=== PATIENT | female | born 1935 | race Caucasian/White ===

== ENCOUNTER → 2019-05-17 13:13 | Outpatient (BNVA) | payer MEDICARE, OTHER, SELFPAY | PROVIDERS: Family Provider Family Medicine; PCP Family Medicine; Referring Provider Internal Medicine Rheumatology; Visit Provider Internal Medicine Rheumatology | DX: M05.79 Rheumatoid arthritis with rheumatoid factor of multiple sites without organ or systems involvement (principal); Z79.899 Other long term (current) drug therapy | CPT/HCPCS: 36415; 82565; 84460; 85025; 85651; 86140 ==

== ENCOUNTER → 2019-05-30 10:18 | Outpatient (BNVA) | payer MEDICARE, OTHER, SELFPAY | PROVIDERS: Family Provider Family Medicine; PCP Family Medicine; Referring Provider Family Medicine; Visit Provider Internal Medicine Rheumatology | DX: M05.79 Rheumatoid arthritis with rheumatoid factor of multiple sites without organ or systems involvement (principal); Z79.899 Other long term (current) drug therapy; Z79.01 Long term (current) use of anticoagulants; Z79.52 Long term (current) use of systemic steroids | CPT/HCPCS: 99213 ==

== ENCOUNTER 2019-07-15 15:32 | Outpatient (CLI) | payer MEDICARE, OTHER, SELFPAY ==
--- NOTE | 2019-07-15 | XRR_ITS ---
PROCEDURE INFORMATION: Exam: XR Chest, 2 Views Exam date and time: 07/15/2019 3:56 PM Age: 83 years old Clinical indication: Condition or disease; Other: Pneumonia, chf TECHNIQUE: Imaging protocol: XR of the chest Views: 2 views. COMPARISON: CR Chest 1 [place] [id number] 10/21/2018 10:38 PM FINDINGS: Lungs: There is unchanged interstitial prominence compatible with fibrosis, and/or recurrent bronchitis, viral pneumonitis or mild interstitial edema. No lobar consolidation. Pleural space: Trace pleural effusions versus pleural thickening is noted. No pneumothorax. Heart/Mediastinum: The heart is enlarged. Bones/joints: Osteopenia and moderate diffuse degenerative changes are noted. XR/XR chest 2V* [id number] IMPRESSION: There is unchanged interstitial prominence compatible with fibrosis, and/or recurrent bronchitis, viral pneumonitis or mild interstitial edema.
== END 2019-07-15 15:33 | disposition home or self-care (01) ==
LOC: RAD 15:37
PROVIDERS: Family Provider Family Medicine; PCP Family Medicine; Visit Provider Family Medicine
DX: J18.9 Pneumonia, unspecified organism (principal); I50.9 Heart failure, unspecified
CPT/HCPCS: 71046

== ENCOUNTER 2019-07-26 12:24 | Outpatient (CLI) | payer MEDICARE, OTHER, SELFPAY ==
--- NOTE | 2019-07-26 12:29 | USCV_ITS ---
Geneva Clark Age: 83 Gender: F : 1935 Exam Date: 07/26/2019 12:31 Ordering Phys: Chandrakant Ballard MD Technologist: Roselyn Aguilar [place] [facility] [place]: CHF BP: / HR: 80 Rhythm: Sinus Technical Quality: Adequate MEASUREMENTS (Male / Female) Normal Values 2D ECHO LV Diastolic Diameter PLAX 4.2 cm 4.2 - 5.9 / 3.9 - 5.3 cm LV Systolic Diameter PLAX 1.9 cm IVS Diastolic Thickness 1.3 cm 0.6 - 1.0 / 0.6 - 0.9 cm IVS Systolic Thickness 2.2 cm LVPW Diastolic Thickness 0.7 cm 0.6 - 1.0 / 0.6 - 0.9 cm LVPW Systolic Thickness 1.5 cm LVOT Diameter 2.0 cm LV Ejection Fraction 2D Teich 84.8 % LV Ejection Fraction MOD 2C 79.3 % LV Ejection Fraction 2C AL 78.5 % LA Diameter 5.1 cm LA Width 4.1 cm LA Height 6.0 cm RA Width 4.5 cm RA Height 5.2 cm M-MODE LV Diastolic Diameter MM 5.0 cm 4.2 - 5.9 / 3.9 - 5.3 cm LV Systolic Diameter MM 3.2 cm LV Ejection Fraction MM Teich 65.1 % IVS Diastolic Thickness MM 0.8 cm 0.6 - 1.0 / 0.6 - 0.9 cm IVS Systolic Thickness MM 1.5 cm LVPW Diastolic Thickness MM 0.9 cm 0.6 - 1.0 / 0.6 - 0.9 cm LVPW Systolic Thickness MM 1.7 cm Aortic Annulus Diameter 2.9 cm LA Ao Ratio MM 1.7 MV E Point Septal Separation 0.9 cm DOPPLER AV Peak Velocity 260.0 cm/s LVOT Peak Velocity 75.0 cm/s AV Area Cont Eq vti 1.1 cm squared AV Area Cont Eq pk 0.9 cm squared MV Peak Velocity 149.0 cm/s MV Area PHT 4.3 cm squared Mitral E to A Ratio 6.7 MV E' Velocity 10.0 cm/s Mitral E to MV E' Ratio 14.8 Mitral E to LV E' Lateral Ratio 16.2 Mitral E to LV E' Septal Ratio 13.8 TR Peak Velocity 301.0 cm/s TR Peak Gradient 32.7 mmHg Right Atrial Pressure 3.0 mmHg Pulmonary Artery Systolic Pressu 39.2 mmHg PV Peak Velocity 106.0 cm/s RV Acceleration Time 0.1 s FINDINGS Left Ventricle Normal left ventricular size and systolic function, EF 74 %. Moderate left ventricular hypertrophy. Grade I/IV diastolic dysfunction (abnormal relaxation filling pattern), normal to mildly elevated filling pressures. Right Ventricle The right ventricle is normal in size and function. Right Atrium Moderately increased right atrial size. Left Atrium Moderately increased left atrial size. Mitral Valve Thickened mitral valve. Moderate to heavy mitral annular calcification. Moderate-severe mitral valve regurgitation. Aortic Valve Moderate aortic valve stenosis, mean gradient 12.9 mmHg, GUS 1.1 cm squared. Peak velocity of 2.6 m/s with a peak gradient of 27 mmHg Tricuspid Valve Wiaxjplw-gq-lqjxbn tricuspid valve regurgitation. Pulmonary artery peak systolic pressure of 39 mmHg Pulmonic Valve Structurally normal pulmonic valve without significant stenosis. There is no pulmonic regurgitation. Pericardium Normal pericardium without effusion. Aorta Normal ascending aorta dimension. CONCLUSIONS Normal left ventricular size and systolic function, EF 74 %. Moderate left ventricular hypertrophy. Moderate aortic valve stenosis, mean gradient 12.9 mmHg, GUS 1.1 cm squared. (Peak velocity of 2.6 m/s with a peak gradient of 27 mmHg) Moderately severe mitral and tricuspid regurgitation Moderate biatrial enlargement Thickened mitral valve. Moderate to heavy mitral annular calcification. Pulmonary artery peak systolic pressure of 39 mmHg There is no pericardial effusion. There are no intracardiac masses. Compared to rt study from 07/21/2018, there may not be a significant change Dr Earnestine Wilson MD FAC (Electronically Signed) Final Date: 26 July 2019 15:20 S
== END 2019-07-26 12:25 | disposition home or self-care (01) ==
PROVIDERS: Family Provider Family Medicine; PCP Family Medicine; Visit Provider Family Medicine
DX: I08.3 Combined rheumatic disorders of mitral, aortic and tricuspid valves (principal); J18.9 Pneumonia, unspecified organism; I50.9 Heart failure, unspecified
CPT/HCPCS: 93306

== ENCOUNTER → 2019-08-13 14:01 | Outpatient (BNVA) | payer MEDICARE, OTHER, SELFPAY | PROVIDERS: Family Provider Family Medicine; PCP Family Medicine; Visit Provider Internal Medicine Rheumatology | DX: M05.79 Rheumatoid arthritis with rheumatoid factor of multiple sites without organ or systems involvement (principal); Z79.899 Other long term (current) drug therapy; Z71.89 Other specified counseling | CPT/HCPCS: 36415; 80076; 82565; 85025; 85651; 86140 ==

== ENCOUNTER → 2019-08-13 14:06 | Outpatient (BNVA) | payer MEDICARE, OTHER, SELFPAY | PROVIDERS: Family Provider Family Medicine; PCP Family Medicine; Visit Provider Internal Medicine Rheumatology | DX: M05.79 Rheumatoid arthritis with rheumatoid factor of multiple sites without organ or systems involvement (principal); Z79.899 Other long term (current) drug therapy; Z71.89 Other specified counseling | CPT/HCPCS: 85025 ==

== ENCOUNTER → 2019-10-28 11:22 | Outpatient (BNVA) | payer MEDICARE, OTHER, SELFPAY | PROVIDERS: Family Provider Family Medicine; PCP Family Medicine; Visit Provider Nurse Practitioner Family | DX: R50.9 Fever, unspecified (principal); J20.8 Acute bronchitis due to other specified organisms; B96.89 Other specified bacterial agents as the cause of diseases classified elsewhere; Z20.828 Contact with and (suspected) exposure to other viral communicable diseases | CPT/HCPCS: 87400; 87635 ==

== ENCOUNTER → 2019-11-06 09:53 | Outpatient (BNVA) | payer MEDICARE, OTHER, SELFPAY | PROVIDERS: Family Provider Family Medicine; PCP Family Medicine; Visit Provider Internal Medicine Rheumatology | DX: M05.79 Rheumatoid arthritis with rheumatoid factor of multiple sites without organ or systems involvement (principal); Z79.899 Other long term (current) drug therapy | CPT/HCPCS: 36415; 80076; 82565; 85025; 85651; 86140 ==

== ENCOUNTER → 2019-11-13 10:02 | Outpatient (BNVA) | payer MEDICARE, OTHER, SELFPAY | PROVIDERS: Family Provider Family Medicine; PCP Family Medicine; Visit Provider Internal Medicine Rheumatology | DX: M05.79 Rheumatoid arthritis with rheumatoid factor of multiple sites without organ or systems involvement (principal); Z79.899 Other long term (current) drug therapy; Z79.52 Long term (current) use of systemic steroids | CPT/HCPCS: 99214 ==

== ENCOUNTER 2019-12-02 22:26 | Emergency (ER) | payer MEDICARE, OTHER, SELFPAY ==
[2019-12-02 22:39] VITALS: BP 112/55; PULSE 60; RESP 18; TEMP 36.6; O2SAT 96; BMI 23.8
--- NOTE | 2019-12-02 22:51 | XRR_ITS ---
PROCEDURE INFORMATION: Exam: XR Chest, 1 View Exam date and time: 12/02/2019 11:15 PM Age: 84 years old Clinical indication: Shortness of breath. TECHNIQUE: Imaging protocol: XR of the chest Views: 1 view. COMPARISON: CR XR chest 2V* [id number] 07/15/2019 3:50 PM FINDINGS: Lungs: No pulmonary vascular congestion or pulmonary edema. No focal peripheral lung consolidation, air bronchogram formation, or silhouette sign. No septal line formation or fissural thickening. Prior pulmonary granulomatous disease. Pleural space: No pleural effusion or pneumothorax. Heart/Mediastinum: The heart is not enlarged for an AP portable exam, and allowing for a left epicardial fat pad. The mediastinal contours are normal. Calcified mediastinal lymph nodes from prior granulomatous disease. Vasculature: The thoracic aorta is tortuous and atherosclerotic. Bones/joints: Multilevel disc degeneration in the thoracic spine. XR/XR chest 1V portable [id number] IMPRESSION: No acute abnormality.
--- NOTE | 2019-12-02 22:54 | XRR_ITS ---
PROCEDURE INFORMATION: Exam: XR Pelvis Exam date and time: 12/02/2019 11:15 PM Age: 84 years old Clinical indication: Injury or trauma; Fall; Initial encounter; Blunt trauma (contusions or hematomas); Bilateral; Hip TECHNIQUE: Imaging protocol: XR pelvis. Views: 1 or 2 view. COMPARISON: CT abdomen pelvis w con* [id number] 10/19/2018 8:40 PM FINDINGS: Bones/joints: Unremarkable. No acute fracture. Soft tissues: Unremarkable. Vasculature: Scattered vascular calcifications. XR/XR pelvis 1-2V* [id number] IMPRESSION: Negative for fracture or dislocation.
--- NOTE | 2019-12-02 22:55 | W.ED.FALL ---
HPI - Fall General: Chief Complaint: Fall Stated Complaint: fall, groin pain, foot numbness Time Seen by Provider: 12/02/19 22:36 Source: patient Mode of arrival: ambulatory Limitations: no limitations History of Present Illness: HPI Narrative: 84-year-old female who states she has a history of congestive heart failure stopped her Lasix 3 days ago as a told her she is dehydrated. She states she is put on 2 to 3 pounds since then. States she has had multiple falls and believes she injured her back when she fell in the bathtub. She has had bruising to her low back along with back pain and right hip pain. She had some slight tingling going down her right foot. She is able ambulate. She denies any head injuries. Denies any chest pain Associated symptoms-after fall: Denies abdominal pain, chest pain, headache(s) or neck pain Review of Systems Const: Denies: fever(s), chills, body aches or change in appetite Eyes: Denies: blurry vision or eye discomfort ENMT: Denies: throat pain or dental pain Card: Denies: chest pain Resp: Denies: dyspnea GI: Denies: abdominal pain, nausea, vomiting or diarrhea : Denies: dysuria Musc: Reports: back pain and extremity pain; Denies: neck pain Skin/Breast: Denies: rash Neuro: Denies: headache(s) Psych: Denies: depression Robert/Lymph: Denies: easy bruising All/Imm: Denies: urticaria PFSH ED PFSH: Medical History Aortic stenosis Cataract fragments in both eyes following surgery High risk medication use High risk medication use Immunization counseling Mitral valve regurgitation Pulmonary arterial hypertension Tricuspid valve regurgitation Surgical History History of hysterectomy with bilateral oophorectomy History of throat surgery S/P hernia repair Family History Other Diabetes Rheumatoid arthritis Systemic lupus erythematosus (SLE) in adult Denies family history of Chronic kidney disease (CKD) Cancer Hypertension Stroke Social History Smoking and tobacco status: former smoker Alcohol intake: never History of recent travel: No Physical Exam Const: COMMON NORMALS: no acute distress, patient oriented x3 and healthy appearing HENMT: COMMON NORMALS: normocephalic and atraumatic HEAD & SCALP: normocephalic and atraumatic Eye: COMMON NORMALS: Equal, round and reactive pupils present and EOMs intact bilaterally PUPIL: Yes Equal, round and reactive pupils present Neck/C-Spine: COMMON NORMALS: full ROM and supple Chest: COMMONS NORMALS: normal inspection of the chest and normal palpation of entire chest wall Resp: COMMON NORMALS: normal respiratory effort, No retractions, No use of accessory muscles and clear to auscultation bilaterally AUSCULTATION: clear to auscultation bilaterally Cardio: COMMON NORMALS: regular rate, regular rhythm and No murmurs present (Cardio) RATE: regular rate RHYTHM: regular rhythm GI: COMMON NORMALS: Normal to inspection, nondistended, normoactive bowel sounds present, Soft to palpation, non-tender and no masses PALPATION: Yes Soft to palpation Extremity: COMMON NORMALS: normal to inspection and full ROM NARRATIVE EXTREMITY EXAM: Slight tenderness over right hip along with tenderness to lumbar spine. Neuro: COMMON NORMALS: patient oriented x3, moves all extremities and no focal motor deficits Psych: COMMON NORMALS: mental status grossly normal, Normal thought process present and cooperative THOUGHT PROCESS: Normal thought process present Skin: COMMON NORMALS: no rashes or lesions noted and no wounds GENERAL SKIN EXAM: no rashes or lesions noted Course Vital Signs: Vital signs: Vital Signs Temperature 97.8 F 12/02/19 22:39 Pulse Rate 60 12/02/19 22:39 Respiratory Rate 18 12/02/19 22:39 Blood Pressure 112/55 12/02/19 22:39 Pulse Oximetry 96 12/02/19 22:39 MDM - Fall MDM Narrative: Medical decision making narrative: Geneva presents here with fall and right hip contusion from the fall. X-ray of the hip and CT of lumbar spine are negative. Patient BNP is slightly elevated and will have her restart Lasix and given 1 dose here. She is well-appearing here. I discussed her sodium being 128 and she has follow-up with Dr. Ballard in 2 days and informed her to discuss this with him and she needs repeat labs. If she feels worse in the meantime she is to return. She understands and agrees to this plan. Lab Data: Labs: Lab Results 12/02/19 12/02/19 Range/Units 23:00 23:00 WBC 4.4 (4.0-10.0) 10^3/ uL RBC 3.59 L (4.1-5.3) 10^6/u L Hgb 11.4 L (11.5-15.3) g/dL Hct 36.0 L (37.0-47.0) % MCV 100.3 H (81-99) fL MCH 31.8 (28.0-34.0) pg MCHC 31.7 (30.0-36.0) g/dL RDW 18.0 H (12.1-15.1) % Plt Count 130 (130-400) 10^3/c mm MPV 11.8 H (7.4-10.4) fL Neut % (Auto) 72.6 % Lymph % (Auto) 7.5 % [place] % (Auto) 11.1 % Eos % (Auto) 3.6 % Baso % (Auto) 0.7 % Neut # (Auto) 3.21 (1.8-7.7) 10^3/u L Lymph # (Auto) 0.3 L (0.8-4.8) 10^3/u L [place] # (Auto) 0.5 (0.2-0.9) 10^3/u L Eos # (Auto) 0.2 (0.0-0.8) 10^3/u L Baso # (Auto) 0.0 (0.0-0.1) 10^3/u L Nucleated RBC % (a uto) 0 % Nucleated RBCs # 0.0 /100WBC Sodium 128 L (136-145) mmol/L Potassium 4.6 (3.5-5.1) mmol/L Chloride 91 L (98-107) mmol/L Carbon Dioxide 27 (22-29) mmol/L Anion Gap 14.6 (5-19) BUN 15 (8-23) mg/dL Creatinine 0.8 (0.5-0.9) mg/dL GFR Calculation Not Reportable Glucose 112 (65-115) mg/dL Calculated Osmolal ity 263 L (285-295) mOsm/k g Calcium 8.7 (8.5-10.5) mg/dL Total Bilirubin 0.7 (0.15-1.2) mg/dL AST 51 H (0-32) U/L ALT 18 (0-33) U/L Alkaline Phosphata se 68 (35-105) IU/L NT-Pro-B Natriuret Pep 7833 H (0-450) pg/mL Total Protein 5.9 L (6.6-8.7) g/dL Albumin 3.6 (3.5-5.2) g/dL Globulin 2.3 (1.3-4.6) g/dL Imaging Data^: CXR: Attestation: I personally reviewed and interpreted this imaging study as follows: My impression: no acute abnormality ct lumbar: Attestation: I personally reviewed and interpreted this imaging study as follows: Radiologist's impression: [address] [address] [address] Scan Report Signed Patient: Geneva Clark Unit #: [id number] : 1935 Age/Sex: 84 / F ADM Date: 12/02/19 Loc: ER Room/Bed: Attending Dr: Ordering Provider/Ordering MD: Elva Jiang MD Date of Service: 12/02/19 Procedure(s): CT lumbar spine wo con* [id number] Accession Number(s): [id number] Report Number: [id number] PROCEDURE INFORMATION: Exam: CT Lumbar Spine Without Contrast Exam date and time: 12/02/2019 11:07 PM Age: 84 years old Clinical indication: Injury or trauma; Fall; Initial encounter; Blunt trauma (contusions or hematomas) TECHNIQUE: Imaging protocol: Computed tomography images of the lumbar spine without contrast. Radiation optimization: All CT scans at this facility use at least one of these dose optimization techniques: automated exposure control; mA and/or kV adjustment per patient size (includes targeted exams where dose is matched to clinical indication); or iterative reconstruction. COMPARISON: No relevant prior studies available. RADIATION DOSE METRICS: Total DLP (mGy-cm): 2016.2 FINDINGS: Vertebrae: No acute fracture. Normal alignment. L1-L2: No significant disc protrusion. No severe spinal canal stenosis. No significant neural foraminal narrowing. L2-L3: No significant disc protrusion. No spinal canal stenosis. No neural foraminal narrowing. L3-L4: No significant disc protrusion. No severe spinal canal stenosis. No significant neural foraminal narrowing. L4-L5: No significant disc protrusion. No severe spinal canal stenosis. No significant neural foraminal narrowing. L5-S1: No significant disc protrusion. No severe spinal canal stenosis. No significant neural foraminal narrowing. Stomach and bowel: Diverticulosis without diverticulitis. Soft tissues: Unremarkable. CT/CT lumbar spine wo con* [id number] IMPRESSION: Negative for fracture or dislocation. xr pelvis: Attestation: I personally reviewed and interpreted this imaging study as follows: My impression: no acute abnormality EKG Data^: EKG 1: Attestation: I personally reviewed and interpreted this EKG as follows: EKG interpretation date: 12/02/19 EKG interpretation time: 23:26 Interpretation: afib hr [address] or t wave abnormalities qrs 106 qtc 417 Discharge Plan Discharge Patient Disposition: Home Clinical Impression: CHF (congestive heart failure) Fall Qualifiers: Encounter type: initial encounter Qualified Code(s): W19.XXXA - Unspecified fall, initial encounter Contusion of hip, left Qualifiers: Encounter type: initial encounter Qualified Code(s): S70.02XA - Contusion of left hip, initial encounter Condition: Stable Prescriptions: No Action levothyroxine 25 mcg capsule 25 mcg PO QDAY RF: 0 diltiazem HCl [DILT-XR] 120 mg capsule,ext.rel 24h degradable 120 mg PO QAM RF: 0 cholecalciferol (vitamin D3) 50,000 unit capsule 50,000 unit PO .MONTHLY RF: 0 ferrous sulfate [Feosol] 325 mg (65 mg iron) tablet 325 mg PO QDAY RF: 0 loratadine [Claritin] 10 mg tablet 10 mg PO QDAY RF: 0 fluticasone propion-salmeterol [Advair Diskus] 250-50 mcg/dose blister with device 1 inh INHALATION DAILY RF: 0 albuterol sulfate 90 mcg/actuation HFA aerosol inhaler 2 puff INHALATION Q6H PRNRF: 0 Combivent Respimat 20-100 mcg/actuation mist 1 puff INHALATION Q6H PRNRF: 0 metoprolol tartrate 25 mg tablet 12.5 mg PO BID RF: 0 WARFARIN tablet 2 mg PO DAILY RF: 0 tramadol 50 mg tablet 50 mg PO Q6H PRNRF: 0 folic acid 1 mg tablet 1 mg PO QDAY Qty: 90 RF: 3 methotrexate sodium 2.5 mg tablet 10 mg PO .Q7days Qty: 20 RF: 3 prednisone 10 mg tablet See Rx Instructions .ROUTE .COMPLEX PRN (Reason: joint pain) Qty: 30 RF: 1 Xeljanz 5 mg tablet 5 mg PO BID Qty: 60 RF: 3 aspirin [Adult Low Dose Aspirin] 81 mg tablet,delayed release (DR/EC) 81 mg PO DAILY RF: 0 furosemide [Lasix] 40 mg tablet See Rx Instructions PO .COMPLEX Qty: 45 RF: 5 potassium chloride 20 mEq tablet extended release 20 meq PO BID Qty: 180 RF: 3 Discharge Orders: Discharge Order (Routine); Ordered 12/03/19 Ordered By: Elva Jiang Referrals: Chandrakant Ballard MD [Primary Care Provider] - 1-3 days Discharge Diet: Advance as tolerated Discharge Activity: Resume usual activity Patient Instructions: Contusion in Adults (ED) Coding Level of Care Code ED Outside Sales Consultant for Chg Fwd Exam Comprehensive
--- NOTE | 2019-12-02 22:57 | ECG_ITS ---
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 Measurements Intervals [place] Rate: 56 P: AL: -1 QRS: 27 QRSD: 106 T: 0 QT: 425 QTc: 412 Interpretive Statements ATRIAL FIBRILLATION WITH SLOW VENTRICULAR RESPONSE SEPTAL MYOCARDIAL INFARCTION , OF INDETERMINATE AGE [40+ ms Q WAVE IN V1/V2] Compared to ECG 07/20/2018 19:41:28 Myocardial infarct finding now present Intraventricular conduction delay no longer present Electronically Signed On 12-03-2019 20:41:52 CDT by Rocio Mckeon M.D. [id number]
[2019-12-02 23:21] LABS: Basophils % 0.7 %; Eosinophils # 0.2 10^3/uL (0.0-0.8); Eosinophils % 3.6 %; Hemoglobin 11.4 g/dL (11.5-15.3); Lymphocytes # 0.3 10^3/uL (0.8-4.8); Lymphocytes % 7.5 %; Mean Corpuscular HGB Conc 31.7 g/dL (30.0-36.0); Mean Corpuscular Hemoglobin 31.8 pg (28.0-34.0); Mean Corpuscular Volume 100.3 fL (81-99); Mean Platelet Volume 11.8 fL (7.4-10.4); Monocytes # 0.5 10^3/uL (0.2-0.9); Monocytes % 11.1 %; Neutrophils # 3.21 10^3/uL (1.8-7.7); Neutrophils % 72.6 %; Nucleated Red Blood Cells % 0 %; Platelet Count 130 10^3/cmm (130-400); Red Blood Count 3.59 10^6/uL (4.1-5.3); White Blood Count 4.4 10^3/uL (4.0-10.0)
[2019-12-02 23:44] LABS: Alanine Aminotransferase 18 U/L (0-33); Albumin Level 3.6 g/dL (3.5-5.2); Alkaline Phosphatase 68 IU/L (35-105); Blood Urea Nitrogen 15 mg/dL (8-23); Calcium 8.7 mg/dL (8.5-10.5); Carbon Dioxide 27 mmol/L (22-29); Chloride 91 mmol/L (98-107); Globulin 2.3 g/dL (1.3-4.6); Glucose 112 mg/dL (65-115); NT Pro B Type Natriuretic Pept 7833 pg/mL (0-450); Osmolality Calculated 263 mOsm/kg (285-295); Sodium 128 mmol/L (136-145); Total Bilirubin 0.7 mg/dL (0.15-1.2); Total Protein 5.9 g/dL (6.6-8.7)
[2019-12-02 23:59] LABS: Anion Gap 14.6 (5-19); Aspartate Amino Transferase 51 U/L (0-32); Potassium 4.6 mmol/L (3.5-5.1)
[2019-12-03] MEDS: FUROsemide 10 mg/mL SDV 4mL 40 MG IVP (00:09)
[2019-12-03 00:34] VITALS: BP 110/63; PULSE 64; RESP 18; O2SAT 99
== END 2019-12-03 00:39 | disposition home or self-care (01) ==
PROVIDERS: Emergency Provider Emergency Medicine; PCP Family Medicine
DX: S70.02XA Contusion of left hip, initial encounter (principal); I11.0 Hypertensive heart disease with heart failure; I50.9 Heart failure, unspecified; Z79.01 Long term (current) use of anticoagulants; Z79.82 Long term (current) use of aspirin; Z87.891 Personal history of nicotine dependence; W18.2XXA Fall in (into) shower or empty bathtub, initial encounter; I70.0 Atherosclerosis of aorta
CPT/HCPCS: 12345; 36415; 71045; 72131; 72170; 80053; 83880; 85025; 93005; 96374; 96375; 99283; J1940

== ENCOUNTER 2020-01-07 14:10 | Outpatient (CLI) | payer MEDICARE, OTHER, SELFPAY ==
--- NOTE | 2020-01-07 14:20 | XRR_ITS ---
PROCEDURE INFORMATION: Exam: XR Chest, 2 Views Exam date and time: 01/07/2020 2:38 PM Age: 84 years old Clinical indication: Other: Hypoxia; Patient HX: HX of copd TECHNIQUE: Imaging protocol: XR of the chest Views: 2 views. COMPARISON: CR XR chest 1V portable [id number] 12/02/2019 11:01 PM FINDINGS: Lungs: There is mild bilateral perihilar vascular congestion seen. Low lung volumes seen. The lungs are otherwise clear No consolidation. Pleural space: Unremarkable. No pleural effusion. No pneumothorax. Heart/Mediastinum: Unremarkable. No cardiomegaly. Bones/joints: Unremarkable. XR/XR chest 2V* [id number] IMPRESSION: Mild bilateral hilar vascular congestion Otherwise No acute findings.
== END 2020-01-07 14:11 | disposition home or self-care (01) ==
LOC: RAD 14:14
PROVIDERS: PCP Family Medicine; Visit Provider Family Medicine
DX: L30.9 Dermatitis, unspecified (principal); R09.02 Hypoxemia; J18.9 Pneumonia, unspecified organism
CPT/HCPCS: 71046

== ENCOUNTER 2020-01-15 08:45 | Outpatient (CLI) | payer MEDICARE, OTHER, SELFPAY ==
--- NOTE | 2020-01-15 08:55 | CT_ITS ---
WS: [id number] CT NECK WITH CONTRAST HISTORY: LOCALIZED SWELLING MASS OR LUMP TECHNIQUE: Contiguous 5 mm axial images are performed through the neck with intravenous contrast. Sag ittal and coronal reformats are also submitted. All CT scans at [facility] use at least o ne of these dose optimization techniques: automated exposure control; mA and/or kV adjustment per pat ient size (includes targeted exams where dose is matched to clinical indication); or iterative recons truction. CONTRAST: CONTRAST: Omnipaque 300; 95 mL IV. DLP: 1515.25 mGycm COMPARISON: 08/04/2016 Study is mildly limited by breathing artifact and motion. Marker is placed over the palpable abnormality along the anterior RIGHT neck at the level of the thyr oid cartilage. Normal symmetric appearance of the soft tissues. There is no adenopathy. Nasopharynx, oropharynx, hypopharynx and larynx are unremarkable. No soft tissue masses or abnormal e nhancement. Torus tubarius and fossa of Rosenmuller and parapharyngeal fat are normal. No adenopathy is identified. The motion artifact is most significant in the upper cervical chain. Small thyroid with no nodules. Parotid and submandibular glands are limited by motion but there is no abnormality identified. Advanced spondylitic changes in the cervical spine, most significant at C4-5, C5-6 and C6-7. Visualized portions of the skull base demonstrate no abnormalities. Orbits and globes are within norm al limits. No soft tissue masses. Visualized paranasal sinuses and mastoid air cells are normal. Severe pulmonary fibrotic changes in the visualized upper lung araujo. Significant progression since 2017. Superimposed acute pneumonitis not excluded. Some of the opacifications are more nodular in noemy earance. Extensive atherosclerosis aorta and proximal great vessels. Heart size is markedly enlarged. CT/CT neck w con* [id number] IMPRESSION: 1. Study significantly limited by motion artifact through the skull base and u pper cervical chains. 2. No neck mass or adenopathy. There is no underlying mass to correspond to th e palpable marker over the anterior RIGHT neck at the level of the thyroid cart ilage. 3. Marked pulmonary fibrotic changes in the upper lung araujo. Superimposed mo re acute process such as pneumonitis cannot be excluded. Correlate clinically f or possible pneumonitis or even metastatic disease with lymphangitic spread.
[2020-01-15] MEDS: iohexol 300 mg/mL 100 mL Btl IV (09:31)
== END 2020-01-15 08:46 | disposition home or self-care (01) ==
LOC: RADWPI 08:49
PROVIDERS: PCP Family Medicine; Visit Provider Specialist
DX: R22.1 Localized swelling, mass and lump, neck (principal)
CPT/HCPCS: 70491; Q9967

== ENCOUNTER 2020-01-23 19:06 | Inpatient (IN) | payer MEDICARE, OTHER, SELFPAY ==
[2020-01-23] VITALS (8 sets, daily range): BP systolic 90–113; BP diastolic 51–67; PULSE 80–89; RESP 17–30; TEMP 36.8; O2SAT 91–98; BMI 22.0
--- NOTE | 2020-01-23 19:28 | XRR_ITS ---
PROCEDURE INFORMATION: Exam: XR Chest, 1 View Exam date and time: 01/23/2020 7:54 PM Age: 84 years old Clinical indication: Shortness of breath; Patient HX: Copd, sobx1 day; Additional info: SOB TECHNIQUE: Imaging protocol: XR of the chest Views: 1 view. COMPARISON: CR XR chest 2V* [id number] 01/07/2020 2:27 PM FINDINGS: Lungs: Patchy alveolar airspace consolidation within the right greater than left upper lobes and to a lesser degree the perihilar regions and lung bases. Consider CT chest. Pleural space: Unremarkable. No pleural effusion. No pneumothorax. Heart/Mediastinum: Cardiac silhouette is enlarged. Bones/joints: Unremarkable. XR/XR chest 1V portable [id number] IMPRESSION: Patchy alveolar airspace consolidation within the right greater than left upper lobes and to a lesser degree the perihilar regions and lung bases. Consider CT chest. Progressive.
--- NOTE | 2020-01-23 19:30 | ECG_ITS ---
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 Measurements Intervals [place] Rate: 83 P: VT: -1 QRS: 12 QRSD: 102 T: 28 QT: 368 QTc: 434 Interpretive Statements ATRIAL FIBRILLATION ABNORMAL RHYTHM ECG Compared to ECG 12/02/2019 23:26:15 Myocardial infarct finding no longer present Electronically Signed On 01-23-2020 19:56:32 CDT by Earnestine Wilson M.D. [id number]
--- NOTE | 2020-01-23 19:47 | ED_ITS ---
HPI - SOB/Dyspnea General: Chief Complaint: Shortness of Breath/Dyspnea Stated Complaint: weaknes and sob Time Seen by Provider: 01/23/20 19:09 Source: patient, family and EMS Mode of arrival: EMS Limitations: no limitations History of Present Illness: HPI Narrative: 84-year-old female who has been having low-grade fevers along with shortness of breath the last 3 to 4 days. Da andre states she had multiple episodes of this over the last 2 months. Patient did have a negative COVID 6 days ago. She also has chronic hemorrhoids and has had blood from those hemorrhoids. She has had generalized weakness. Patient denies any chest pain or vomiting or diarrhea. MD elicited complaint: shortness of breath Associated symptoms: Deny chest pain Review of Systems Const: Reports: chills Eyes: Denies: blurry vision or eye discomfort ENMT: Denies: throat pain or dental pain Card: Denies: chest pain Resp: Reports: dyspnea GI: Reports: rectal pain and hematochezia : Denies: dysuria Musc: Denies: neck pain or back pain Skin/Breast: Denies: rash Neuro: Reports: weakness in extremities Psych: Denies: depression Robert/Lymph: Denies: easy bruising All/Imm: Denies: urticaria PFSH ED PFSH: Medical History (Updated 12/11/19 @ 00:00 by ) Aortic stenosis Cataract fragments in both eyes following surgery High risk medication use High risk medication use Immunization counseling Mitral valve regurgitation Pulmonary arterial hypertension Tricuspid valve regurgitation Surgical History History of hysterectomy with bilateral oophorectomy History of throat surgery S/P hernia repair Family History Other Diabetes Rheumatoid arthritis Systemic lupus erythematosus (SLE) in adult Denies family history of Chronic kidney disease (CKD) Cancer Hypertension Stroke Social History Smoking and tobacco status: former smoker Alcohol intake: never History of recent travel: No Physical Exam Const: COMMON NORMALS: no acute distress and patient oriented x3 GENERAL APPEARANCE: ill appearing HENMT: COMMON NORMALS: normocephalic and atraumatic HEAD & SCALP: normocephalic and atraumatic Eye: COMMON NORMALS: Equal, round and reactive pupils present and EOMs intact bilaterally PUPIL: Yes Equal, round and reactive pupils present Neck/C-Spine: COMMON NORMALS: full ROM and supple Chest: COMMONS NORMALS: normal inspection of the chest and normal palpation of entire chest wall Resp: COMMON NORMALS: No retractions, No use of accessory muscles and clear to auscultation bilaterally EFFORT & INSPECTION: Yes tachypneic AUSCULTATION: clear to auscultation bilaterally Cardio: COMMON NORMALS: regular rate, regular rhythm and No murmurs present (Cardio) RATE: regular rate RHYTHM: regular rhythm GI: COMMON NORMALS: Normal to inspection, nondistended, normoactive bowel sounds present, Soft to palpation, non-tender and no masses PALPATION: Yes Soft to palpation : OTHER: Multiple hemorrhoids noted with bright red stool Extremity: COMMON NORMALS: normal to inspection and full ROM Neuro: COMMON NORMALS: patient oriented x3, moves all extremities and no focal motor deficits Psych: COMMON NORMALS: mental status grossly normal, Normal thought process present and cooperative THOUGHT PROCESS: Normal thought process present Skin: COMMON NORMALS: no rashes or lesions noted and no wounds GENERAL SKIN EXAM: no rashes or lesions noted Course Vital Signs: Vital signs: Vital Signs Temperature 98.3 F 01/23/20 19:28 Pulse Rate 80 01/23/20 23:18 Respiratory Rate 18 01/23/20 23:18 Blood Pressure 91/55 01/23/20 23:18 Pulse Oximetry 98 01/23/20 23:18 MDM - SOB/Dyspnea MDM Narrative: Medical decision making narrative: Patient presents here with dyspnea. Patient's x-ray shows likely CHF exacerbation. See no signs of pneumonia. Patient does have an elevated BNP and was given Lasix here. She also has hyponatremia as well. I spoke to Dr. Ballard and will admit at this time. Patient has been stable while in the ER. Lab Data: Labs: Lab Results 01/23/20 01/23/20 01/23/20 Range/Units 19:50 19:50 19:50 WBC 11.3 H (4.0-10.0) 10^3/ uL RBC 3.31 L (4.1-5.3) 10^6/u L Hgb 10.6 L (11.5-15.3) g/dL Hct 31.9 L (37.0-47.0) % MCV 96.4 (81-99) fL MCH 32.0 (28.0-34.0) pg MCHC 33.2 (30.0-36.0) g/dL RDW 19.0 H (12.1-15.1) % Plt Count 277 (130-400) 10^3/c mm MPV 11.0 H (7.4-10.4) fL Neut % (Auto) 81.7 % Lymph % (Auto) 5.8 % [place] % (Auto) 9.8 % Eos % (Auto) 0.5 % Baso % (Auto) 0.3 % Neut # (Auto) 9.27 H (1.8-7.7) 10^3/u L Lymph # (Auto) 0.7 L (0.8-4.8) 10^3/u L [place] # (Auto) 1.1 H (0.2-0.9) 10^3/u L Eos # (Auto) 0.1 (0.0-0.8) 10^3/u L Baso # (Auto) 0.0 (0.0-0.1) 10^3/u L Nucleated RBC % (a uto) 0 % Nucleated RBCs # 0.0 /100WBC PT 66.50 H (12.1-14.9) SECO NDS INR 7.46 H* (0.8-1.2) Sodium 120 L (136-145) mmol/L Potassium 4.9 (3.5-5.1) mmol/L Chloride 85 L (98-107) mmol/L Carbon Dioxide 24 (22-29) mmol/L Anion Gap 15.9 (5-19) BUN 16 (8-23) mg/dL Creatinine 0.9 (0.5-0.9) mg/dL GFR Calculation Not Reportable Glucose 127 H (65-115) mg/dL Calculated Osmolal ity 253 L (285-295) mOsm/k g Lactate (0.5-2.2) mmol/L Calcium 8.1 L (8.5-10.5) mg/dL Total Bilirubin 0.5 (0.15-1.2) mg/dL AST 45 H (0-32) U/L ALT 17 (0-33) U/L Alkaline Phosphata se 85 (35-105) IU/L Troponin T Baselin e (0-10) ng/L Troponin T 120 Min [place] (0-10) ng/L Delta Troponin T (0-10) ABS# NT-Pro-B Natriuret Pep 3389 H (0-450) pg/mL Total Protein 6.5 L (6.6-8.7) g/dL Albumin 2.7 L (3.5-5.2) g/dL Globulin 3.8 (1.3-4.6) g/dL Urine Color (Yellow) Urine Appearance (CLEAR) Urine pH (5-7) Ur Specific Gravit y (1.005-1.030) Urine Protein (Negative) Urine Glucose (UA) (Normal) Urine Ketones (Negative) Urine Blood (Negative) Urine Nitrate (Negative) Urine Bilirubin (Negative) Urine Urobilinogen (Negative) mg/dL Ur Leukocyte Audrey ase (Negative) SARS-CoV-2 Ag (Rap id) (Negative) 01/23/20 01/23/20 01/23/20 Range/Units 19:50 19:59 21:10 WBC (4.0-10.0) 10^3/ uL RBC (4.1-5.3) 10^6/u L Hgb (11.5-15.3) g/dL Hct (37.0-47.0) % MCV (81-99) fL MCH (28.0-34.0) pg MCHC (30.0-36.0) g/dL RDW (12.1-15.1) % Plt Count (130-400) 10^3/c mm MPV (7.4-10.4) fL Neut % (Auto) % Lymph % (Auto) % [place] % (Auto) % Eos % (Auto) % Baso % (Auto) % Neut # (Auto) (1.8-7.7) 10^3/u L Lymph # (Auto) (0.8-4.8) 10^3/u L [place] # (Auto) (0.2-0.9) 10^3/u L Eos # (Auto) (0.0-0.8) 10^3/u L Baso # (Auto) (0.0-0.1) 10^3/u L Nucleated RBC % (a uto) % Nucleated RBCs # /100WBC PT (12.1-14.9) SECO NDS INR (0.8-1.2) Sodium (136-145) mmol/L Potassium (3.5-5.1) mmol/L Chloride (98-107) mmol/L Carbon Dioxide (22-29) mmol/L Anion Gap (5-19) BUN (8-23) mg/dL Creatinine (0.5-0.9) mg/dL GFR Calculation Glucose (65-115) mg/dL Calculated Osmolal ity (285-295) mOsm/k g Lactate 1.5 (0.5-2.2) mmol/L Calcium (8.5-10.5) mg/dL Total Bilirubin (0.15-1.2) mg/dL AST (0-32) U/L ALT (0-33) U/L Alkaline Phosphata se (35-105) IU/L Troponin T Baselin e 54 H (0-10) ng/L Troponin T 120 Min [place] (0-10) ng/L Delta Troponin T (0-10) ABS# NT-Pro-B Natriuret Pep (0-450) pg/mL Total Protein (6.6-8.7) g/dL Albumin (3.5-5.2) g/dL Globulin (1.3-4.6) g/dL Urine Color Yellow (Yellow) Urine Appearance Clear (CLEAR) Urine pH 6.5 (5-7) Ur Specific Gravit y 1.005 (1.005-1.030) Urine Protein Neg (Negative) Urine Glucose (UA) Norm (Normal) Urine Ketones Negative (Negative) Urine Blood Neg (Negative) Urine Nitrate Negative (Negative) Urine Bilirubin Neg (Negative) Urine Urobilinogen Neg (Negative) mg/dL Ur Leukocyte Audrey ase Negative (Negative) SARS-CoV-2 Ag (Rap id) (Negative) 01/23/20 01/23/20 Range/Units 21:11 21:51 WBC (4.0-10.0) 10^3/ uL RBC (4.1-5.3) 10^6/u L Hgb (11.5-15.3) g/dL Hct (37.0-47.0) % MCV (81-99) fL MCH (28.0-34.0) pg MCHC (30.0-36.0) g/dL RDW (12.1-15.1) % Plt Count (130-400) 10^3/c mm MPV (7.4-10.4) fL Neut % (Auto) % Lymph % (Auto) % [place] % (Auto) % Eos % (Auto) % Baso % (Auto) % Neut # (Auto) (1.8-7.7) 10^3/u L Lymph # (Auto) (0.8-4.8) 10^3/u L [place] # (Auto) (0.2-0.9) 10^3/u L Eos # (Auto) (0.0-0.8) 10^3/u L Baso # (Auto) (0.0-0.1) 10^3/u L Nucleated RBC % (a uto) % Nucleated RBCs # /100WBC PT (12.1-14.9) SECO NDS INR (0.8-1.2) Sodium (136-145) mmol/L Potassium (3.5-5.1) mmol/L Chloride (98-107) mmol/L Carbon Dioxide (22-29) mmol/L Anion Gap (5-19) BUN (8-23) mg/dL Creatinine (0.5-0.9) mg/dL GFR Calculation Glucose (65-115) mg/dL Calculated Osmolal ity (285-295) mOsm/k g Lactate (0.5-2.2) mmol/L Calcium (8.5-10.5) mg/dL Total Bilirubin (0.15-1.2) mg/dL AST (0-32) U/L ALT (0-33) U/L Alkaline Phosphata se (35-105) IU/L Troponin T Baselin e (0-10) ng/L Troponin T 120 Min [place] 47.53 H (0-10) ng/L Delta Troponin T -6.47 L (0-10) ABS# NT-Pro-B Natriuret Pep (0-450) pg/mL Total Protein (6.6-8.7) g/dL Albumin (3.5-5.2) g/dL Globulin (1.3-4.6) g/dL Urine Color (Yellow) Urine Appearance (CLEAR) Urine pH (5-7) Ur Specific Gravit y (1.005-1.030) Urine Protein (Negative) Urine Glucose (UA) (Normal) Urine Ketones (Negative) Urine Blood (Negative) Urine Nitrate (Negative) Urine Bilirubin (Negative) Urine Urobilinogen (Negative) mg/dL Ur Leukocyte Audrey ase (Negative) SARS-CoV-2 Ag (Rap id) Negative (Negative) Imaging Data^: CXR: Attestation: I personally reviewed and interpreted this imaging study as follows: My impression: pulmonary edema EKG Data^: EKG 1: Attestation: I personally reviewed and interpreted this EKG as follows: EKG Interpretation Date: 01/23/20 EKG interpretation time: 19:57 Interpretation: afib hr [address] or t wave abnormalities qrs 102 qtc 408 Discharge Plan Discharge Admit Provider: Chandrakant Ballard Discharge Date/Time: 01/23/20 23:25 Coding Level of Care Code ED Health And Fitness Professor for Chg Fwd Exam Comprehensive
--- NOTE | 2020-01-23 20:00 | PC.NURSE ---
EKG done at 1999 and shown to ER doctor
[2020-01-23] MEDS: sodium chloride 0.9% 1,000 ML 999 ML IV (20:12)
[2020-01-23 20:17] LABS: Basophils % 0.3 %; Eosinophils # 0.1 10^3/uL (0.0-0.8); Eosinophils % 0.5 %; Hematocrit 31.9 % (37.0-47.0); Hemoglobin 10.6 g/dL (11.5-15.3); Lymphocytes # 0.7 10^3/uL (0.8-4.8); Lymphocytes % 5.8 %; Mean Corpuscular HGB Conc 33.2 g/dL (30.0-36.0); Mean Corpuscular Volume 96.4 fL (81-99); Monocytes # 1.1 10^3/uL (0.2-0.9); Monocytes % 9.8 %; Neutrophils # 9.27 10^3/uL (1.8-7.7); Neutrophils % 81.7 %; Nucleated Red Blood Cells % 0 %; Platelet Count 277 10^3/cmm (130-400); Red Blood Count 3.31 10^6/uL (4.1-5.3); White Blood Count 11.3 10^3/uL (4.0-10.0)
[2020-01-23 20:31] LABS: Add Urine Microscopic? NO
[2020-01-23 20:34] LABS: Bilirubin Urine Neg (Negative); Blood Urine Neg (Negative); Glucose Urine UA Norm (Normal); Ketones Urine Negative (Negative); Leukocyte Esterase Urine Negative (Negative); Nitrate Urine Negative (Negative); Protein Urine Neg (Negative); Specific Gravity, Urine 1.005 (1.005-1.030); Urine Appearance Clear (CLEAR); Urine Color Yellow (Yellow); Urobilinogen Urine Neg (Negative); pH Urine 6.5 (5-7)
[2020-01-23 20:37] LABS: Troponin(5th) Baseline 54 ng/L (0-10)
[2020-01-23 20:41] LABS: INR 7.46 (0.8-1.2)
[2020-01-23 20:44] LABS: Alanine Aminotransferase 17 U/L (0-33); Albumin Level 2.7 g/dL (3.5-5.2); Alkaline Phosphatase 85 IU/L (35-105); Aspartate Amino Transferase 45 U/L (0-32); Blood Urea Nitrogen 16 mg/dL (8-23); Calcium 8.1 mg/dL (8.5-10.5); Carbon Dioxide 24 mmol/L (22-29); Chloride 85 mmol/L (98-107); Globulin 3.8 g/dL (1.3-4.6); Glucose 127 mg/dL (65-115); NT Pro B Type Natriuretic Pept 3389 pg/mL (0-450); Osmolality Calculated 253 mOsm/kg (285-295); Sodium 120 mmol/L (136-145); Total Bilirubin 0.5 mg/dL (0.15-1.2); Total Protein 6.5 g/dL (6.6-8.7)
--- NOTE | 2020-01-23 20:44 | PC.NURSE ---
lab called critical pt 66.5 and inr 7.46, notified Dr. Jiang, no new orders at this time
[2020-01-23 20:58] LABS: Anion Gap 15.9 (5-19); Potassium 4.9 mmol/L (3.5-5.1)
--- NOTE | 2020-01-23 21:30 | ECG_ITS ---
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 Measurements Intervals [place] Rate: 86 P: [place]: -1 QRS: 18 QRSD: 100 T: 31 QT: 391 QTc: 468 Interpretive Statements ATRIAL FIBRILLATION NONSPECIFIC T-WAVE ABNORMALITY Compared to ECG 01/23/2020 19:57:50 T-wave abnormality now present Electronically Signed On 01-25-2020 9:09:23 CDT by Susan Adam M.D. [email or web address] [email or web address] university [email or web address]/store/[id number]
[2020-01-23 21:58] LABS: Lactate (Lactic Acid level) 1.5 mmol/L (0.5-2.2)
--- NOTE | 2020-01-23 22:06 | PC.NURSE ---
EKG done at 2200 and shown to ER doctor
[2020-01-23] MEDS: FUROsemide 10 mg/mL SDV 4mL 40 MG IVP (22:19)
[2020-01-23 22:24] LABS: Troponin 5 2HR 47.53 ng/L (0-10)
[2020-01-23 22:26] LABS: Troponin 5 2HR Delta -6.47 ABS# (0-10)
[2020-01-23 22:29] LABS: SARS Covid-2 Antigen Negative (Negative)
[2020-01-24] VITALS (7 sets, daily range): BP systolic 84–118; BP diastolic 54–62; PULSE 80–86; RESP 18–20; TEMP 36.7–37.1; O2SAT 92–97
--- NOTE | 2020-01-24 01:30 | ECG_ITS ---
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 Measurements Intervals [place] Rate: 82 P: [place]: -1 QRS: 15 QRSD: 105 T: -28 QT: 381 QTc: 446 Interpretive Statements ATRIAL FIBRILLATION SEPTAL MYOCARDIAL INFARCTION [40+ ms Q WAVE IN V1/V2], PROBABLY OLD Compared to ECG 01/23/2020 19:57:50 Myocardial infarct finding now present Electronically Signed On 01-25-2020 9:07:06 CDT by Susan Adam M.D. [email or web address] biloxiNew Channel Online Schooluniversity hospitals [facility].Bizible/store/NU/[id number] f
[2020-01-24 03:17] LABS: Troponin 5 6HR 45.41 ng/L (0-10); Troponin 5 6HR Delta -8.59 ng/L (0-12)
--- NOTE | 2020-01-24 06:56 | XRR_ITS ---
PROCEDURE INFORMATION: Exam: XR Chest, 2 Views Exam date and time: 01/24/2020 7:48 AM Age: 84 years old Clinical indication: Fever and shortness of breath; Patient HX: Short of breath/ low grade temp x 3-4 days; Additional info: Cough TECHNIQUE: Imaging protocol: XR of the chest Views: 2 views. COMPARISON: CR XR chest 1V portable [id number] 01/23/2020 7:45 PM FINDINGS: Lungs: Patchy diffuse interstitial and alveolar airspace disease. Edema and/or pneumonia. Pleural space: Unremarkable. No pleural effusion. No pneumothorax. Heart/Mediastinum: Cardiomegaly Bones/joints: Unremarkable. XR/XR chest 2V* [id number] IMPRESSION: Patchy diffuse interstitial and alveolar airspace disease. Edema and/or pneumonia. Consider CT chest. Mildly improved in the upper lobe particularly on the right.
[2020-01-24 07:45] LABS: Basophils % 0.2 %; Eosinophils # 0.2 10^3/uL (0.0-0.8); Eosinophils % 2.3 %; Hematocrit 31.6 % (37.0-47.0); Hemoglobin 10.2 g/dL (11.5-15.3); Lymphocytes # 0.5 10^3/uL (0.8-4.8); Lymphocytes % 5.8 %; Mean Corpuscular HGB Conc 32.3 g/dL (30.0-36.0); Mean Corpuscular Hemoglobin 31.6 pg (28.0-34.0); Mean Corpuscular Volume 97.8 fL (81-99); Mean Platelet Volume 10.3 fL (7.4-10.4); Monocytes # 0.7 10^3/uL (0.2-0.9); Monocytes % 7.8 %; Neutrophils % 82.6 %; Nucleated Red Blood Cells % 0 %; Platelet Count 268 10^3/cmm (130-400); Red Blood Count 3.23 10^6/uL (4.1-5.3); Red Cell Distribution Width 18.9 % (12.1-15.1)
[2020-01-24 08:05] LABS: Anion Gap 13.2 (5-19); Blood Urea Nitrogen 14 mg/dL (8-23); Calcium 7.9 mg/dL (8.5-10.5); Carbon Dioxide 27 mmol/L (22-29); Chloride 90 mmol/L (98-107); Glucose 94 mg/dL (65-115); Osmolality Calculated 262 mOsm/kg (285-295); Potassium 4.2 mmol/L (3.5-5.1); Sodium 126 mmol/L (136-145)
[2020-01-24] MEDS: levofloxacin-dextrose 5 % 500 MG/100 ML PREMIX 100 MG IV (08:11)
[2020-01-24] MEDS: levothyroxine 25 mcg Tablet PO (08:16)
[2020-01-24] MEDS: ferrous sulfate EC 325 mg Tablet PO (08:16)
[2020-01-24] MEDS: aspirin 81 mg EC Tablet PO (08:16)
[2020-01-24] MEDS: potassium chloride ER 10 mEq Tablet 20 MEQ PO ×2 (08:16→16:39)
[2020-01-24] MEDS: folic acid 1 mg Tablet PO (08:16)
[2020-01-24] MEDS: vancomycin 750 MG in sodium chloride 0.9% 250 ML 250 MG IV (09:34)
--- NOTE | 2020-01-24 11:03 | PC.NURSE ---
R/T CALL TO DELBERT DAVIES AT [phone] TO UPDATE ON PATIENTS STATUS/CONDITION. HENRYW, ALYSSA
--- NOTE | 2020-01-24 12:18 | P.HP_ITS ---
Providers/Chief Complaint Admitting Physician: Chandrakant Ballard MD Primary Care Provider: Chandrakant Ballard MD Chief Complaint: weaknes and sob History of Present Illness Geneva Clark is a 84 year old female who presented to the emergency room yesterday afternoon for fairly sudden onset of increasing shortness of breath and hypoxia. Her O2 sats were in the mid 70s at home. This improved in the emergency room with oxygen therapy. She had been diagnosed about 3 weeks ago wi th chickenpox. She had fevers and rash all over her body consistent with hemorrhagic varicella. Antibody testing confirmed an acute infection. She was treated with Valtrex and has subsequently improved. She had had a few doses of Rocephin IM in the clinic through this for possible pneumonia. Chest x-rays in the clinic never did confirm pneumonia. Overall her symptoms had improved and she clinically was resolved has of about a week and a half ago. She had been doing well and had restarted her Xeljanz which she takes for rheumatoid arthritis. This had been stopped after her initial diagnosis of chickenpox. On initial presentation she was felt to have CHF. She was given dose of Lasix IV and had some improvement overnight with her hypoxia. This morning she is still a bit short of breath but not as hypoxic. She has no fevers or chills. No significant sputum production. Review of Systems Narrative: General: No chronic fevers or chronic weight changes. HEENT: No acute changes in vision. No acute hearing loss. No new difficulty swallowing. Heart: No new chest pain or recent issues with coronary disease. Lungs: No history of TB. No chronic lung disease. GI: No history of GI bleeding. No hepatitis. No chronic nausea or vomitting. Renal: No dysuria or frequency. No hematuria Neuro: No acute neurological changes or deficits. Musculoskeletal: No acutely worsening joint pain or swelling. Medications/Allergies Home Medications Medication Instructions Recorded Confirmed Last Taken Type albuterol sulfate 90 mcg/actuation 2 puff INHALATION Q6H PRN 05/30/19 01/23/20 Unknown History aerosol inhaler cholecalciferol (vitamin D3) 1,250 50,000 unit PO .MONTHLY cap 05/30/19 01/23/20 Unknown History mcg (50,000 unit) capsule ferrous sulfate 325 mg (65 mg 325 mg PO QDAY 05/30/19 01/23/20 Unknown History iron) tablet ipratropium 20 mcg-albuterol 100 1 puff INHALATION Q6H PRN 05/30/19 01/23/20 Unknown History mcg/actuation mist for inhalation levothyroxine 25 mcg capsule 25 mcg PO QDAY 05/30/19 01/24/20 Unknown History loratadine 10 mg tablet 10 mg PO QDAY 05/30/19 01/23/20 Unknown History folic acid 1 mg tablet 1 mg PO QDAY #90 tab 08/12/19 01/23/20 Unknown Rx tramadol 50 mg tablet 50 mg PO Q6H PRN 08/12/19 01/23/20 Unknown History aspirin 81 mg tablet,delayed 81 mg PO DAILY 09/24/19 01/23/20 Unknown History release furosemide 40 mg tablet See Rx Instructions PO .COMPLEX 10/08/19 01/23/20 Unknown Rx #45 tab methotrexate sodium 2.5 mg tablet 10 mg PO .Q7days #20 tab 11/13/19 01/23/20 Unknown Rx potassium chloride 20 mEq 20 meq PO BID #180 tab 11/15/19 01/23/20 Unknown Rx tablet,extended release sulfamethoxazole-trimethoprim 1 tab PO BID 01/23/20 01/23/20 Unknown History [Bactrim DS] Allergies Allergy/AdvReac Type Severity Reaction Status Date / Time penicillin G Allergy Severe anaphylacti Verified 11/13/19 10:16 c hydroxychloroquine AdvReac Intermediate rash Verified 11/13/19 10:16 [From Plaquenil] tocilizumab [From Actemra] AdvReac Mild made her Verified 11/13/19 10:16 sick adhesive AdvReac blister Verified 11/13/19 10:16 PFSH Acute PFSH: Medical History (Updated 01/24/20 @ 13:17 by Chandrakant Ballard MD) Aortic stenosis Cataract fragments in both eyes following surgery High risk medication use High risk medication use Immunization counseling Mitral valve regurgitation Pulmonary arterial hypertension Rheumatoid arthritis Tricuspid valve regurgitation Surgical History History of hysterectomy with bilateral oophorectomy History of throat surgery S/P hernia repair Family History Other Diabetes Rheumatoid arthritis Systemic lupus erythematosus (SLE) in adult Denies family history of Chronic kidney disease (CKD) Cancer Hypertension Stroke Social History Smoking and tobacco status: former smoker Alcohol intake: never History of recent travel: No Vitals/I&O/Wt Last Vital Signs Temp 98.3 F 01/24/20 11:00 Pulse 82 01/24/20 11:00 Resp 18 01/24/20 11:00 BP 109/62 01/24/20 11:00 Pulse Ox 96 01/24/20 11:00 01/23/20 01/24/20 01/24/20 22:59 06:59 14:59 Intake Total 1000 / 1000 Output Total 760 / 760 400 / 400 Balance 1000 / 240 -760 / 240 -400 / -400 Weight last 48 hrs Weight 109 lb Physical Exam Narrative: EXAM NARRATIVE: General: No acute distress, Alert. Well nourished. HEENT: PERRLA, EOMI. vision grossly normal. Throat clear. Neck: supple, no adenopathy. Heart: Regular rate and rhythm. No murmurs, rubs or gallops. Normal capillary refill. Lungs: Clear to auscultation. No wheezes, rhonchi. She does have some crackles in the bases. Abdomen: Positive bowel sounds. Non-tender, non-distended. No hepatosplenomegaly. No gaurding. Extremities: No clubbing, cyanosis, or edema. Negative Shaw's. Data : 01/24/20 07:19 01/24/20 07:19 Micro: Microbiology 01/23/20 21:13 Blood Culture - Preliminary Blood SPECIMEN COLLECTED 01/23/20 21:10 Blood Culture - Preliminary Blood SPECIMEN COLLECTED A&P Assessment and plan (1) Mitral valve regurgitation: She appears to have acute on chronic diastolic congestive heart failure. She had a reasonable response to 1 dose of Lasix last night. We will probably go ahead and repeat a dose today and see how she does with that. Status: Acute (2) Pulmonary arterial hypertension: Status: Acute (3) Pneumonia: This is a possible diagnosis. Her white blood cell count on admission was a little elevated with some left shift. Her chest x-ray findings also would be consistent more with a pneumonia picture now. However, she did have some significant improvement with just Lasix overnight. We will go ahead and start her on IV Levaquin. She had MRSA on a recent urine culture in the clinic just a couple days ago. We will add vancomycin as well. Status: Acute (4) Hypercoagulable state: Patient was supposed to stop Coumadin while taking Bactrim. I suspect she probably neglected to do this. Her INR is markedly elevated. Has came down some today from yesterday. We will probably just continue to monitor for this to resolve itself. Status: Acute (5) Hyponatremia: -Severely hyponatremic most likely due to her congestive heart failure and pulmonary situation. This is improved nicely overnight. We will continue to see if this corrects itself. Status: Acute Attestations Medical Necessity Statement*: 84-year-old female with CHF exacerbation and possible pneumonia requiring continued inpatient IV treatments and monitoring. If she improves as we expect she possibly may be discharged in the next 1 to 2 days. Coding Level of Care Code Acute Solid Glass Rod Dowel Machine Operator for Gina Cantu Diagnoses Mitral valve regurgitation I34.0 Pulmonary arterial hypertension I27.21 Pneumonia J18.9 Hypercoagulable state D68.59 Hyponatremia E87.1
[2020-01-24] MEDS: phenyleph-mineral oil-petrolat Oint 28 gm 1 APPLIC PR ×3 (13:02→20:52)
[2020-01-24] MEDS: FUROsemide 10 mg/mL SDV 4mL 40 MG IVP (13:36)
[2020-01-25] VITALS (8 sets, daily range): BP systolic 101–122; BP diastolic 49–77; PULSE 73–88; RESP 16–20; TEMP 36.4–36.9; O2SAT 87–100
[2020-01-25 06:35] LABS: Basophils % 0.2 %; Eosinophils # 0.2 10^3/uL (0.0-0.8); Hematocrit 29.9 % (37.0-47.0); Hemoglobin 9.8 g/dL (11.5-15.3); Lymphocytes # 0.5 10^3/uL (0.8-4.8); Lymphocytes % 5.2 %; Mean Corpuscular HGB Conc 32.8 g/dL (30.0-36.0); Mean Corpuscular Hemoglobin 31.9 pg (28.0-34.0); Mean Corpuscular Volume 97.4 fL (81-99); Mean Platelet Volume 10.2 fL (7.4-10.4); Monocytes # 0.5 10^3/uL (0.2-0.9); Monocytes % 5.4 %; Neutrophils # 7.56 10^3/uL (1.8-7.7); Neutrophils % 85.3 %; Nucleated Red Blood Cells % 0 %; Platelet Count 270 10^3/cmm (130-400); Red Blood Count 3.07 10^6/uL (4.1-5.3); Red Cell Distribution Width 18.7 % (12.1-15.1); White Blood Count 8.9 10^3/uL (4.0-10.0)
[2020-01-25] MEDS: levofloxacin-dextrose 5 % 500 MG/100 ML PREMIX 100 MG IV (06:41)
[2020-01-25 07:01] LABS: Alanine Aminotransferase 17 U/L (0-33); Albumin Level 2.6 g/dL (3.5-5.2); Alkaline Phosphatase 75 IU/L (35-105); Anion Gap 13.1 (5-19); Aspartate Amino Transferase 50 U/L (0-32); Blood Urea Nitrogen 12 mg/dL (8-23); Calcium 7.6 mg/dL (8.5-10.5); Carbon Dioxide 23 mmol/L (22-29); Chloride 89 mmol/L (98-107); Globulin 3.7 g/dL (1.3-4.6); Glucose 106 mg/dL (65-115); NT Pro B Type Natriuretic Pept 3242 pg/mL (0-450); Osmolality Calculated 252 mOsm/kg (285-295); Potassium 4.1 mmol/L (3.5-5.1); Sodium 121 mmol/L (136-145); Total Bilirubin 0.9 mg/dL (0.15-1.2); Total Protein 6.3 g/dL (6.6-8.7)
[2020-01-25] MEDS: levothyroxine 25 mcg Tablet PO (08:12)
[2020-01-25] MEDS: ferrous sulfate EC 325 mg Tablet PO (08:12)
[2020-01-25] MEDS: folic acid 1 mg Tablet PO (08:12)
[2020-01-25] MEDS: aspirin 81 mg EC Tablet PO (08:12)
[2020-01-25] MEDS: phenyleph-mineral oil-petrolat Oint 28 gm 1 APPLIC PR ×4 (08:13→22:31)
[2020-01-25] MEDS: potassium chloride ER 10 mEq Tablet 20 MEQ PO ×2 (08:13→17:16)
[2020-01-25] MEDS: vancomycin 750 MG in sodium chloride 0.9% 250 ML 250 MG IV (08:15)
--- NOTE | 2020-01-25 09:44 | PM.PN ---
Subjective Subjective: Interval history: Patient is on room air as of this morning with O2 sat 96%. Blood pressure is well controlled. She however still complains of some subjective dyspnea. Sodium continues to drop to 121 today. She is unable to give me any details regarding her medications, speicifically bactrim Medications: Reviewed: Yes Vitals/I&O/Wt Last Vital Signs Temp 98.1 F 01/25/20 07:00 Pulse 86 01/25/20 07:00 Resp 17 01/25/20 07:00 BP 122/77 01/25/20 07:00 Pulse Ox 100 01/25/20 07:00 01/24/20 01/25/20 01/25/20 22:59 06:59 14:59 Intake Total 320 / 720 200 / 920 470 / 470 Output Total 850 / 1450 700 / 2150 300 / 300 Balance -530 / -730 -500 / -1230 170 / 170 Weight last 48 hrs Weight 49.442 kg Physical Exam Narrative: EXAM NARRATIVE: GEN: Awake, alert and oriented, no acute distress CVS: S1S2 N RS: CTA B/L Abd: Soft, nt/nd , bs+ CUSTOMER RELATIONS SPECIALIST: no focal neuro deficits Data : 01/25/20 06:10 01/25/20 17:59 Micro: Microbiology 01/23/20 19:59 Urine Culture - Preliminary Urine Catheterized 01/23/20 21:13 Blood Culture - Preliminary Blood NEGATIVE TO DATE 01/23/20 21:10 Blood Culture - Preliminary Blood NEGATIVE TO DATE A&P Assessment and plan (1) Mitral valve regurgitation: She appears to have acute on chronic diastolic congestive heart failure. She had a reasonable response to 1 dose of Lasix last night. Status: Acute (2) Pulmonary arterial hypertension: Status: Acute (3) Pneumonia: This is a possible diagnosis. Her white blood cell count on admission was a little elevated with some left shift. Her chest x-ray findings also would be consistent more with a pneumonia picture now. However, she did have some significant improvement with just Lasix overnight. We will go ahead and start her on IV Levaquin. She had MRSA on a recent urine culture in the clinic just a couple days ago. We will contnue vancomycin as well. Given patient is currentluy on AGUSTIN 2 inhibitors with B/L infiltrates on exam, would evalaute for PJP pneumonia I am uncertain how long she has been on bactrim as outpatient or if this was prescribed for ppx. PAtient unable to give me these details currently. Check CT chest PJP PCR from induced sputum screening LDH and BDG COVID PCR check , antigen negative upon admission CMV PCR with am labs Status: Acute (4) Hypercoagulable state: Patient was supposed to stop Coumadin while taking Bactrim. I suspect she probably neglected to do this. Her INR is markedly elevated. Has came down some today from yesterday. We will probably just continue to monitor for this to resolve itself. Status: Acute (5) Hyponatremia: -Severely hyponatremic most likely due to her congestive heart failure and pulmonary situation. This is improved nicely overnight. We will continue to see if this corrects itself. - possible that SIADH from bactrim contirbuting check urine and serum osmolality, urine lytes start po NaCL BID Status: Acute Attestations Medical Necessity Statement*: B/L pneumonia of unclear etiology, undergoing evaluation Coding Level of Care Code Acute Fashion Artist for Gina Cantu Diagnoses Mitral valve regurgitation I34.0 Pulmonary arterial hypertension I27.21 Pneumonia J18.9 Hypercoagulable state D68.59 Hyponatremia E87.1
[2020-01-25 10:15] LABS: Lactate Dehydrogenase 404 U/L (135-214)
--- NOTE | 2020-01-25 13:49 | CTR_ITS ---
PROCEDURE INFORMATION: Exam: CT Chest Without Contrast Exam date and time: 01/25/2020 3:42 PM Age: 84 years old Clinical indication: Abnormal findings; Abnormal radiologic exam of lung or chest; Patient HX: Tristin infiltrates? Seen on xray; Additional info: B/l new infiltrates on cxr, hypoxia on admission TECHNIQUE: Imaging protocol: Computed tomography of the chest without contrast. Radiation optimization: All CT scans at this facility use at least one of these dose optimization techniques: automated exposure control; mA and/or kV adjustment per patient size (includes targeted exams where dose is matched to clinical indication); or iterative reconstruction. COMPARISON: CT chest [facility] [id number] 12/01/2016 8:24 AM RADIATION DOSE METRICS: Total DLP (mGy-cm): 351.18 FINDINGS: Lungs: Prominent bilateral multifocal ground-glass opacities and consolidation with airspace disease which is nonspecific and could represent severe Covid-19 pneumonia versus other bilateral pneumonia. Pleural space: Unremarkable. No pneumothorax. No pleural effusion. Heart: Mild cardiomegaly. Severe calcification in the mitral valve and/or mitral valve annulus. Severe aortic valve calcification. Severe calcified coronary artery disease. Aorta: Calcification of the abdominal aorta and/or iliac arteries consistent with atherosclerotic vessel disease. Lymph nodes: Stable right calcified hilar nodes and/or mediastinal nodes and/or lung nodules consistent with old granulomatous disease. Shotty mediastinal adenopathy. Spleen: Calcified splenic granulomas. Bones/joints: Moderate thoracic spondylosis. Soft tissues: Unremarkable. Other findings: Examination is limited secondary to motion artifact. CT/CT chest [facility] [id number] IMPRESSION: 1. Severe calcified coronary artery disease. 2. Prominent bilateral multifocal ground-glass opacities and consolidation with airspace disease which is nonspecific and could represent severe Covid-19 pneumonia versus other bilateral pneumonia. Radiation Dose CTDIVOL = (mGy): DLP = 351.18 (mGy-cm)
[2020-01-25] MEDS: sodium chloride 1 gm Tablet PO ×2 (14:38→17:16)
[2020-01-25 18:32] LABS: Sodium 122 mmol/L (136-145)
[2020-01-25 19:08] LABS: Urine Creatinine 27 mg/dL (28-217)
[2020-01-25 19:26] LABS: Urine Random Sodium 16 mmol/L
[2020-01-26] VITALS (7 sets, daily range): BP systolic 98–123; BP diastolic 60–73; PULSE 79–89; RESP 15–18; TEMP 36.3–36.9; O2SAT 90–96
[2020-01-26] MEDS: ondansetron 2 mg/ML SDV 2 mL 4 MG IVP (04:26)
[2020-01-26 05:01] LABS: Procalcitonin 0.19 ng/mL (0-0.5)
[2020-01-26 07:54] LABS: Vancomycin Trough 6.8 ug/mL (10-15)
[2020-01-26] MEDS: levofloxacin-dextrose 5 % 500 MG/100 ML PREMIX 100 MG IV (09:36)
[2020-01-26] MEDS: folic acid 1 mg Tablet PO (09:42)
[2020-01-26] MEDS: levothyroxine 25 mcg Tablet PO (09:42)
[2020-01-26] MEDS: sodium chloride 1 gm Tablet PO (09:42)
[2020-01-26] MEDS: potassium chloride ER 10 mEq Tablet 20 MEQ PO (09:42)
[2020-01-26] MEDS: ferrous sulfate EC 325 mg Tablet PO (09:42)
[2020-01-26] MEDS: aspirin 81 mg EC Tablet PO (09:43)
[2020-01-26] MEDS: phenyleph-mineral oil-petrolat Oint 28 gm 1 APPLIC PR (09:47)
[2020-01-26] MEDS: vancomycin 1,000 MG in sodium chloride 0.9% 250 ML 250 MG IV (09:48)
[2020-01-26] MEDS: TRAMadol 50 mg Tablet PO (10:04)
--- NOTE | 2020-01-26 11:47 | PM.PN ---
Subjective Subjective: Interval history: No acute overnight events, currently on room air saturating 93 to 96%. COVID PCR remains pending. Underwent CT of the chest yesterday which showed prominent bilateral multifocal groundglass opacities and consolidation with airspace disease which is nonspecific and could represent severe COVID-19 versus other bilateral pneumonia per radiology read Medications: Reviewed: Yes Vitals/I&O/Wt Last Vital Signs Temp 97.7 F 01/26/20 11:00 Pulse 83 01/26/20 11:00 Resp 18 01/26/20 11:00 BP 116/66 01/26/20 11:00 Pulse Ox 94 01/26/20 11:00 01/25/20 01/26/20 01/26/20 22:59 06:59 14:59 Intake Total 450 / 1160 180 / 1340 Output Total 300 / 1300 800 / 2100 Balance 150 / -140 -620 / -760 Physical Exam Narrative: EXAM NARRATIVE: GEN: Awake, alert and oriented, no acute distress CVS: S1S2 N RS: CTA B/L Abd: Soft, nt/nd , bs+ SENIOR COMMUNICATIONS ENGINEER: no focal neuro deficits Data : 01/26/20 12:55 01/26/20 12:55 Micro: Microbiology 01/23/20 19:59 Urine Culture - Final Urine Catheterized 01/25/20 10:20 Legionella Urinary Antigen - Final Urine,Voided A&P Assessment and plan (1) Mitral valve regurgitation: She appears to have acute on chronic diastolic congestive heart failure. She had a reasonable response Lasix. Currently appears to be euvolemic today, holding off on further lasix Status: Acute (2) Pulmonary arterial hypertension: Status: Acute (3) Pneumonia: CT chest perfromed yesetrday with bilateral multifocal groundglass opacities and consolidation with airspace disease which is nonspecific and could represent severe COVID-19 versus other bilateral pneumonia per radiology read. Procalcitonin negative. Currently on empiric coverage with levaquin which will cover for atypical organisms + vancomycin check resp PCR panel, urine histoplasma antigen. Previously on Jak2 inhibitors, per daughter this was discontinued one month ago. May be associated with PCP pneumonia, ordered PCP PCR from sputum, to be collected if COVID PCR returns negative. Status: Acute (4) Hypercoagulable state: Patient was supposed to stop Coumadin while taking Bactrim. I suspect she probably neglected to do this. Her INR is markedly elevated. Has came down some today from yesterday. We will probably just continue to monitor for this to resolve itself. Status: Acute (5) Hyponatremia: -Severely hyponatremic most likely due to her congestive heart failure and pulmonary situation. This is improved nicely overnight. We will continue to see if this corrects itself. - possible that SIADH from bactrim may be contirbuting - Continue salt tabs BID for now, recheck sodium Status: Acute Attestations Medical Necessity Statement*: Improving respiratory status, monitor sodium levels closely, pending COVID PCR Coding Level of Care Code Acute Armoring Machine Operator for g Fwd Diagnoses Mitral valve regurgitation I34.0 Pulmonary arterial hypertension I27.21 Pneumonia J18.9 Hypercoagulable state D68.59 Hyponatremia E87.1
[2020-01-26 13:39] LABS: Basophils % 0.1 %; Eosinophils # 0.1 10^3/uL (0.0-0.8); Eosinophils % 0.8 %; Hematocrit 31.1 % (37.0-47.0); Lymphocytes # 0.4 10^3/uL (0.8-4.8); Lymphocytes % 5.1 %; Mean Corpuscular HGB Conc 32.2 g/dL (30.0-36.0); Mean Corpuscular Hemoglobin 31.6 pg (28.0-34.0); Mean Corpuscular Volume 98.4 fL (81-99); Mean Platelet Volume 10.3 fL (7.4-10.4); Monocytes # 0.7 10^3/uL (0.2-0.9); Monocytes % 7.6 %; Neutrophils # 7.33 10^3/uL (1.8-7.7); Nucleated Red Blood Cells % 0 %; Platelet Count 303 10^3/cmm (130-400); Red Blood Count 3.16 10^6/uL (4.1-5.3); Red Cell Distribution Width 18.5 % (12.1-15.1); White Blood Count 8.6 10^3/uL (4.0-10.0)
[2020-01-26 13:48] LABS: INR 3.49 (0.8-1.2)
[2020-01-26 13:55] LABS: Alanine Aminotransferase 20 U/L (0-33); Albumin Level 2.4 g/dL (3.5-5.2); Alkaline Phosphatase 83 IU/L (35-105); Aspartate Amino Transferase 51 U/L (0-32); Blood Urea Nitrogen 9 mg/dL (8-23); Calcium 8.2 mg/dL (8.5-10.5); Carbon Dioxide 19 mmol/L (22-29); Chloride 95 mmol/L (98-107); Globulin 3.9 g/dL (1.3-4.6); Glucose 92 mg/dL (65-115); Osmolality Calculated 258 mOsm/kg (285-295); Sodium 125 mmol/L (136-145); Total Protein 6.3 g/dL (6.6-8.7)
[2020-01-26 14:03] LABS: Anion Gap 15.6 (5-19); Potassium 4.6 mmol/L (3.5-5.1)
[2020-01-27] VITALS (7 sets, daily range): BP systolic 96–130; BP diastolic 61–72; PULSE 70–93; RESP 15–18; TEMP 36.6; O2SAT 91–97
--- NOTE | 2020-01-27 05:22 | PC.NURSE ---
Patient incontinent of urine, large amount of urine in brief.
--- NOTE | 2020-01-27 07:05 | XRR_ITS ---
PROCEDURE INFORMATION: Exam: XR Chest, 1 View Exam date and time: 01/27/2020 8:09 AM Age: 84 years old Clinical indication: Patient HX: Shortness of breath; Pneumonia; Covid precautions TECHNIQUE: Imaging protocol: XR of the chest Views: 1 view. COMPARISON: CT chest con [id number] 01/25/2020 4:12 PM FINDINGS: Lungs: Multifocal bilateral airspace opacities . Pleural space: No pleural effusion. No pneumothorax. Heart/Mediastinum: Cardiomegaly. Bones/joints: No acute fracture. XR/XR chest 1V portable [id number] IMPRESSION: Multifocal bilateral airspace opacities which can be seen with pneumonia , to include viral etiologies.
--- NOTE | 2020-01-27 07:14 | P.PN_ITS ---
Subjective Subjective: Interval history: Seems to be feel little bit better today. No fevers or chills. Still little short of breath and weak. No chest pain. Medications: Reviewed: Yes Vitals/I&O/Wt Last Vital Signs Temp 98 F 01/27/20 04:00 Pulse 79 01/27/20 04:00 Resp 17 01/27/20 04:00 BP 128/72 01/27/20 04:00 Pulse Ox 91 01/27/20 04:00 01/26/20 01/27/20 01/27/20 22:59 06:59 14:59 Intake Total 120 / 120 Output Total 150 / 350 200 / 350 Balance -150 / -230 -80 / -230 Physical Exam Narrative: EXAM NARRATIVE: General: No acute distress, Alert. Well nourished. HEENT: PERRLA, EOMI. vision grossly normal. Throat clear. Neck: supple, no adenopathy. Heart: Regular rate and rhythm. No murmurs, rubs or gallops. Normal capillary refill. Lungs: Clear to auscultation. No wheezes, rhonchi. She does have some crackles in the bases. Abdomen: Positive bowel sounds. Non-tender, non-distended. No hepatosplenomegaly. No gaurding. Extremities: No clubbing, cyanosis, or edema. Negative Shaw's. Data : 01/28/20 04:12 01/28/20 04:12 Micro: Microbiology 01/23/20 19:59 Urine Culture - Final Urine Catheterized A&P Assessment and plan (1) Mitral valve regurgitation: She appears to have acute on chronic diastolic congestive heart failure. She appears diuresed adequately at this point.. (2) Pulmonary arterial hypertension: (3) Pneumonia: She seems to be improving from the standpoint. Chest x-ray should still show some pneumonia. Continue with Levaquin. Hopeful for discharge tomorrow. Status: Resolved (4) Hypercoagulable state: Patient was supposed to stop Coumadin while taking Bactrim. I suspect she probably neglected to do this. Her INR is markedly elevated. Has came down some today from yesterday. We will probably just continue to monitor for this to resolve itself. Status: Resolved (5) Hyponatremia: -Severely hyponatremic most likely due to her congestive heart failure and pulmonary situation. This continues to improve. Status: Resolved Attestations Medical Necessity Statement*: 84-year-old female with congestive heart failure and pneumonia requiring continued inpatient IV treatments and monitoring. Coding Level of Care Code Acute Retread Builder for g Fwd Diagnoses Mitral valve regurgitation I34.0 Pulmonary arterial hypertension I27.21 Pneumonia J18.9 Hypercoagulable state D68.59 Hyponatremia E87.1
[2020-01-27] MEDS: levofloxacin-dextrose 5 % 500 MG/100 ML PREMIX 100 MG IV (08:03)
[2020-01-27] MEDS: ferrous sulfate EC 325 mg Tablet PO (08:07)
[2020-01-27] MEDS: aspirin 81 mg EC Tablet PO (08:07)
[2020-01-27] MEDS: levothyroxine 25 mcg Tablet PO (08:07)
[2020-01-27] MEDS: folic acid 1 mg Tablet PO (08:08)
[2020-01-27] MEDS: potassium chloride ER 10 mEq Tablet 20 MEQ PO ×2 (08:08→18:16)
[2020-01-27] MEDS: sodium chloride 1 gm Tablet PO ×2 (08:14→18:16)
[2020-01-27] MEDS: vancomycin 1,000 MG in sodium chloride 0.9% 250 ML 250 MG IV (10:16)
[2020-01-27 10:44] LABS: Coronavirus Lab Test PTC Negative
[2020-01-27 10:57] LABS: Basophils % 0.2 %; Eosinophils # 0.1 10^3/uL (0.0-0.8); Eosinophils % 1.2 %; Hematocrit 34.4 % (37.0-47.0); Lymphocytes # 0.3 10^3/uL (0.8-4.8); Lymphocytes % 4.1 %; Mean Platelet Volume 9.8 fL (7.4-10.4); Monocytes # 0.6 10^3/uL (0.2-0.9); Monocytes % 7.6 %; Neutrophils % 85.1 %; Nucleated Red Blood Cells % 0 %; Platelet Count 326 10^3/cmm (130-400); Red Blood Count 3.44 10^6/uL (4.1-5.3); Red Cell Distribution Width 18.7 % (12.1-15.1); White Blood Count 8.3 10^3/uL (4.0-10.0)
[2020-01-27 11:13] LABS: INR 2.94 (0.8-1.2)
[2020-01-27 11:36] LABS: Alanine Aminotransferase 21 U/L (0-33); Albumin Level 2.7 g/dL (3.5-5.2); Alkaline Phosphatase 90 IU/L (35-105); Anion Gap 13.8 (5-19); Aspartate Amino Transferase 48 U/L (0-32); Blood Urea Nitrogen 11 mg/dL (8-23); Calcium 8.4 mg/dL (8.5-10.5); Carbon Dioxide 21 mmol/L (22-29); Chloride 99 mmol/L (98-107); Globulin 3.9 g/dL (1.3-4.6); Glucose 81 mg/dL (65-115); Osmolality Calculated 266 mOsm/kg (285-295); Potassium 4.8 mmol/L (3.5-5.1); Sodium 129 mmol/L (136-145); Total Bilirubin 0.8 mg/dL (0.15-1.2); Total Protein 6.6 g/dL (6.6-8.7)
[2020-01-27 15:26] LABS: Osmolality Serum 262 mOsm/kg (278-305)
[2020-01-27] MEDS: phenyleph-mineral oil-petrolat Oint 28 gm 1 APPLIC PR ×2 (18:16→19:13)
--- NOTE | 2020-01-27 18:58 | PC.NURSE ---
Report to Yaya GARCIA
--- NOTE | 2020-01-27 22:00 | PC.NURSE ---
Patient incontinent of urine, large amount of urine in brief.
[2020-01-28] VITALS: BP 101/50; PULSE 91; RESP 17; TEMP 36.7; O2SAT 96
[2020-01-28 04:00] VITALS: BP 100/59; PULSE 99; RESP 17; TEMP 36.8; O2SAT 92
[2020-01-28 05:36] LABS: Basophils % 0.3 %; Eosinophils # 0.3 10^3/uL (0.0-0.8); Hematocrit 32.4 % (37.0-47.0); Hemoglobin 10.4 g/dL (11.5-15.3); Lymphocytes # 0.4 10^3/uL (0.8-4.8); Lymphocytes % 4.5 %; Mean Corpuscular HGB Conc 32.1 g/dL (30.0-36.0); Mean Corpuscular Volume 99.7 fL (81-99); Mean Platelet Volume 10.4 fL (7.4-10.4); Monocytes # 0.8 10^3/uL (0.2-0.9); Monocytes % 8.9 %; Neutrophils # 7.25 10^3/uL (1.8-7.7); Neutrophils % 81.7 %; Nucleated Red Blood Cells % 0 %; Platelet Count 314 10^3/cmm (130-400); Red Blood Count 3.25 10^6/uL (4.1-5.3); Red Cell Distribution Width 18.7 % (12.1-15.1); White Blood Count 8.9 10^3/uL (4.0-10.0)
[2020-01-28 06:01] LABS: Anion Gap 14.8 (5-19); Blood Urea Nitrogen 15 mg/dL (8-23); Calcium 8.6 mg/dL (8.5-10.5); Carbon Dioxide 21 mmol/L (22-29); Chloride 103 mmol/L (98-107); Glucose 120 mg/dL (65-115); Osmolality Calculated 280 mOsm/kg (285-295); Potassium 4.8 mmol/L (3.5-5.1); Sodium 134 mmol/L (136-145)
[2020-01-28 08:00] VITALS: BP 116/69; PULSE 67; RESP 18; TEMP 36.5; O2SAT 92
--- NOTE | 2020-01-28 08:25 | DCPLANNER ---
Pg 2 of IM updated and reviewed with pt. No questions, she states that she understands it. Copy provided.
[2020-01-28] MEDS: levothyroxine 25 mcg Tablet PO (08:29)
[2020-01-28] MEDS: folic acid 1 mg Tablet PO (08:29)
[2020-01-28] MEDS: ferrous sulfate EC 325 mg Tablet PO (08:29)
[2020-01-28] MEDS: aspirin 81 mg EC Tablet PO (08:29)
[2020-01-28] MEDS: sodium chloride 1 gm Tablet PO (08:29)
[2020-01-28] MEDS: potassium chloride ER 10 mEq Tablet 20 MEQ PO (08:29)
[2020-01-28] MEDS: levofloxacin-dextrose 5 % 500 MG/100 ML PREMIX 100 MG IV (08:30)
[2020-01-28] MEDS: phenyleph-mineral oil-petrolat Oint 28 gm 1 APPLIC PR (08:30)
[2020-01-28 08:34] VITALS: PULSE 91; RESP 17; O2SAT 95
[2020-01-28] MEDS: vancomycin 1,000 MG in sodium chloride 0.9% 250 ML 250 MG IV (10:00)
[2020-01-28 11:26] VITALS: BP 115/72; PULSE 64; RESP 16; TEMP 36.4; O2SAT 92
--- NOTE | 2020-01-28 11:32 | PM.DCS ---
Discharge Providers Date of Admission: 01/23/20 22:41 Date of Discharge: January 28, 2020 Attending Provider at Admission: Chandrakant Ballard MD Attending Provider at Discharge: Chandrakant Ballard MD Primary Care Provider: Chandrakant Ballard MD Diagnoses at Discharge Discharge Diagnosis (1) Mitral valve regurgitation: (2) Pulmonary arterial hypertension: (3) Pneumonia: Status: Resolved (4) Hypercoagulable state: Status: Resolved (5) Hyponatremia: Status: Resolved Reason for Visit Reason for Visit: catrina Hospital Course Discharge Summary: Patient was admitted to the hospital for what appeared to be increasing hypoxia and congestive heart failure. She also developed bilateral pneumonia. Patient was diuresed and had some improvement in her symptoms. Better inflammatory markers and white blood cell count remained elevated. She was placed on IV Levaquin and had improvement over the next few days. She was able to be weaned off her oxygen by time of discharge. Chest x-ray had some concerning findings for possible pulmonary fibrosis or other infectious disease. An extensive panel was obtained and was pending at the time of discharge. Patient was feeling much better at the time of discharge and was discharged in good condition with oral Levaquin. We will follow-up on other cultures and testing as an outpatient. She also had significant hyponatremia which improved on its own. Discharge Data Data Completed and Pending: Completed Studies During Hospitalization Category Date Time Status CT chest wo con 7 1250 Routine Cat Scan 01/25/20 13:49 Completed XR chest 1V melvin ble [id number] Routine Exams 01/27/20 07:05 Completed XR chest 1V melvin ble [id number] Urgent Exams 01/23/20 19:28 Completed XR chest 2V* 7104 6 Routine Exams 01/24/20 06:56 Completed Pending at discharge Category Date Time Status Aspergillus AG,EI A,Serum AM LABS Lab 01/27/20 10:50 Received Blood Culture Sta t Lab 01/23/20 21:13 Results Histoplasma Quant itative AG Routine Lab 01/26/20 22:30 Ordered Miscellaneous Nona t Routine Lab 01/25/20 06:10 Received Osmolality Urine Routine Lab 01/25/20 10:28 Received Pneumocystis jiro vecii, QT PCR Rout ine Lab 01/25/20 13:53 Ordered Respiratory Viral Panel PCR Routine Lab 01/26/20 23:00 Received Vancomycin Trough Timed Lab 01/29/20 08:00 Ordered Labs from last 24 hours 01/28/20 01/28/20 01/27/20 04:12 04:12 10:50 WBC 8.9 RBC 3.25 L Hgb 10.4 L Hct 32.4 L MCV 99.7 H MCH 32.0 MCHC 32.1 RDW 18.7 H Plt Count 314 MPV 10.4 Neut % (Auto) 81.7 Lymph % (Auto) 4.5 [place] % (Auto) 8.9 Eos % (Auto) 3.0 Baso % (Auto) 0.3 Neut # (Auto) 7.25 Lymph # (Auto) 0.4 L [place] # (Auto) 0.8 Eos # (Auto) 0.3 Baso # (Auto) 0.0 Nucleated RBC % (a uto) 0 Nucleated RBCs # 0.0 Sodium 134 L 129 L Potassium 4.8 4.8 Chloride 103 99 Carbon Dioxide 21 L 21 L Anion Gap 14.8 13.8 BUN 15 11 Creatinine 0.6 0.6 GFR Calculation Not Reportable Not Reportable Glucose 120 H 81 Serum Osmolality Calculated Osmolal ity 280 L 266 L Calcium 8.6 8.4 L Total Bilirubin 0.8 AST 48 H ALT 21 Alkaline Phosphata se 90 Total Protein 6.6 Albumin 2.7 L Globulin 3.9 01/24/20 07:19 WBC RBC Hgb Hct MCV MCH MCHC RDW Plt Count MPV Neut % (Auto) Lymph % (Auto) [place] % (Auto) Eos % (Auto) Baso % (Auto) Neut # (Auto) Lymph # (Auto) [place] # (Auto) Eos # (Auto) Baso # (Auto) Nucleated RBC % (a uto) Nucleated RBCs # Sodium Potassium Chloride Carbon Dioxide Anion Gap BUN Creatinine GFR Calculation Glucose Serum Osmolality 262 L Calculated Osmolal ity Calcium Total Bilirubin AST ALT Alkaline Phosphata se Total Protein Albumin Globulin Vitals: Last Vital Signs Temp 97.6 F 01/28/20 11:26 Pulse 64 01/28/20 11:26 Resp 16 01/28/20 11:26 BP 115/72 01/28/20 11:26 Pulse Ox 92 01/28/20 11:26 Discharge Plan Discharge Patient Disposition: Home Health Service Condition: Stable Prescriptions: New levofloxacin 500 mg tablet 500 mg PO DAILY 5 Days Qty: 5 RF: 0 Continued levothyroxine 25 mcg capsule 25 mcg PO QDAY RF: 0 cholecalciferol (vitamin D3) 50,000 unit capsule 50,000 unit PO .MONTHLY RF: 0 ferrous sulfate [Feosol] 325 mg (65 mg iron) tablet 325 mg PO QDAY RF: 0 loratadine [Claritin] 10 mg tablet 10 mg PO QDAY RF: 0 albuterol sulfate 90 mcg/actuation HFA aerosol inhaler 2 puff INHALATION Q6H PRN (Reason: Shortness Of Breath) RF: 0 Combivent Respimat 20-100 mcg/actuation mist 1 puff INHALATION Q6H PRN (Reason: Shortness Of Breath) RF: 0 tramadol 50 mg tablet 50 mg PO Q6H PRN (Reason: Pain) RF: 0 folic acid 1 mg tablet 1 mg PO QDAY Qty: 90 RF: 3 methotrexate sodium 2.5 mg tablet 10 mg PO .Q7days Qty: 20 RF: 3 aspirin [Adult Low Dose Aspirin] 81 mg tablet,delayed release (DR/EC) 81 mg PO DAILY RF: 0 furosemide [Lasix] 40 mg tablet See Rx Instructions PO .COMPLEX Qty: 45 RF: 5 potassium chloride 20 mEq tablet extended release 20 meq PO BID Qty: 180 RF: 3 Discontinued sulfamethoxazole-trimethoprim [Bactrim DS] 800-160 mg Tablet 1 tab PO BID RF: 0 Discharge Orders: Discharge Order (Routine); Ordered 01/28/20 Ordered By: Chandrakant Ballard Referrals: [facility] [Outside] Chandrakant Ballard MD [Primary Care Provider] - 02/04/20 12:20 pm Discharge Diet: Usual diet Discharge Activity: Resume usual activity Patient Instructions: Levofloxacin (By mouth), Viral Pneumonia (GEN), Hyponatremia (DC), Pneumonia Stoplight Activity Restrictions/Additional Instructions: - Discharge home with Home health nursing and PT to assess and treat. - Hold your coumadin and resume all of your other medications the same - New medication of Levauin for 5 days for an antibiotic - follow up with Dr. Ballard in 2-3 days. - Call if worsening breathing or fevers Discharge Date/Time: 01/28/20 15:21 Discharge Attestations Time Spent in Discharge Care*: greater than 30 min Quality Metrics Clinical Quality Measures During this hospital stay, did patient experience: None Coding Level of Care Code Acute Harness Installer for Chg Fwd Diagnoses Mitral valve regurgitation I34.0 Pulmonary arterial hypertension I27.21 Pneumonia J18.9 Hypercoagulable state D68.59 Hyponatremia E87.1
[2020-01-28 11:57] VITALS: BP 115/72; PULSE 64; RESP 16; TEMP 36.4; O2SAT 92
--- NOTE | 2020-01-28 12:44 | PC.NURSE ---
Patient discharge Basket Person called and spoke with daughter, Ely, to discuss discharge instructions. All questions answered with no further concerns at this time.
[2020-01-28 15:12] LABS: Osmolality Urine 187 mOsm/kg (50-1200)
[2020-01-30 12:33] LABS: Adenovirus Not Detected (Not Detected); Human Metapneumovirus Not Detected (Not Detected); Human Parainflu Virus 1 Not Detected (Not Detected); Human Parainflu Virus 2 Not Detected (Not Detected); Human Parainflu Virus 3 Not Detected (Not Detected); Human Rsv A Not Detected (Not Detected); Influenza A Not Detected (Not Detected); Influenza B Not Detected (Not Detected); Rhinovirus/Enterovirus Not Detected (Not Detected)
[2020-01-30 17:22] LABS: Aspergillus AG,EIA,Serum NOT DETECTED; Aspergillus Galactomannan Inde <0.50
[2020-02-03 10:12] LABS: Miscellaneous Test SEE COMMNET
== END 2020-01-28 15:21 | disposition home health service (06) | DRG 291 ==
LOC: ER 19:28 → MEDSURG 23:04
PROVIDERS: Emergency Medicine; Student in an Organized Health Care Education/Training Program; Admitting Provider Family Medicine; PCP Family Medicine; Visit Provider Family Medicine
DX: I50.33 Acute on chronic diastolic (congestive) heart failure (principal); J18.9 Pneumonia, unspecified organism; E87.1 Hypo-osmolality and hyponatremia; I34.0 Nonrheumatic mitral (valve) insufficiency; M06.9 Rheumatoid arthritis, unspecified; I27.21 Secondary pulmonary arterial hypertension; Z79.82 Long term (current) use of aspirin; I07.1 Rheumatic tricuspid insufficiency; Z87.891 Personal history of nicotine dependence
CPT/HCPCS: 12345; 36415; 71045; 71046; 71250; 80048; 80053; 80202; 81003; 82570; 83605; 83615; 83880; 83930; 83935; 84145; 84295; 84300; 84484; 85025; 85610; 87040; 87086; 87305; 87426; 87449; 87635; 93005; 94640; 96375; 97110; 97161; 97530; 99284; J1940; J1956; J2405; J3370; J7030; J7050

== ENCOUNTER 2020-02-07 10:10 | Outpatient (CLI) | payer MEDICARE, OTHER, SELFPAY ==
--- NOTE | 2020-02-07 10:21 | XR_ITS ---
WS: [id number] AP upright chest, 02/07/2020 Clinical Data: PNEUMONIA Comparison: Portable chest, 01/27/2020. Findings: The diffuse opacities throughout both lungs have diminished only slightly from the previous chest x-ray. The heart remains slightly enlarged.. The aortic arch and descending aorta show calcifi cation and tortuosity. No pneumothorax is seen. XR/XR chest 2V* [id number] Impression: 1. Little change in diffuse bilateral opacities probably representing pneumonia . 2. Cardiomegaly and atherosclerosis.
== END 2020-02-07 10:11 | disposition home or self-care (01) ==
LOC: RAD 10:17
PROVIDERS: PCP Family Medicine; Visit Provider Family Medicine
DX: J18.9 Pneumonia, unspecified organism (principal); I51.7 Cardiomegaly; I70.90 Unspecified atherosclerosis
CPT/HCPCS: 71046

== ENCOUNTER → 2020-03-01 12:28 | Outpatient (BNVA) | payer MEDICARE, OTHER, SELFPAY | PROVIDERS: PCP Family Medicine; Visit Provider Internal Medicine Pulmonary Disease | DX: Z11.59 Encounter for screening for other viral diseases (principal); J44.9 Chronic obstructive pulmonary disease, unspecified | CPT/HCPCS: 87635 ==

== ENCOUNTER 2020-03-05 10:56 | Outpatient (CLI) | payer MEDICARE, OTHER, SELFPAY ==
[2020-03-05 14:15] VITALS: BP 93/55
--- NOTE | 2020-03-05 14:25 | PFTS_ITS ---
Date of Study:03/05/20 Date of Dictation: MECHANICS: Forced vital capacity (FVC) is reduced. Forced expiratory volume in one second (FEV1) is reduced. FEV1/FVC is normal. FLOW VOLUME LOOP: Narrow. LUNG VOLUMES: Not measured DIFFUSING CAPACITY FOR CARBON MONOXIDE: Not measured INTERPRETATION: The spirometry is consistent with moderately severe restriction. MTDD
== END 2020-03-05 10:57 | disposition home or self-care (01) ==
LOC: RT 10:58
PROVIDERS: PCP Family Medicine; Visit Provider Internal Medicine Pulmonary Disease
DX: J44.9 Chronic obstructive pulmonary disease, unspecified (principal)
CPT/HCPCS: 94010; 94618

== ENCOUNTER 2020-03-13 11:33 | Outpatient (CLI) | payer MEDICARE, OTHER, SELFPAY ==
--- NOTE | 2020-03-13 11:38 | USCV_ITS ---
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 Supernormal resting GUSTAVO laterally CONCLUSIONS Possible occlusion of the posterior tibial arteries bilaterally Normal resting ABIs bilaterally. Dr Earnestine Wilson MD [facility] (Electronically Signed) Final Date: 13 March 2020 23:50 S
== END 2020-03-13 11:34 | disposition home or self-care (01) ==
LOC: US 11:34
PROVIDERS: PCP Family Medicine; Visit Provider Family Medicine
DX: I73.9 Peripheral vascular disease, unspecified (principal)
CPT/HCPCS: 93922

== ENCOUNTER → 2020-03-19 09:46 | Outpatient (BNVA) | payer MEDICARE, OTHER, SELFPAY | PROVIDERS: PCP Family Medicine; Visit Provider Internal Medicine Rheumatology | DX: M05.79 Rheumatoid arthritis with rheumatoid factor of multiple sites without organ or systems involvement (principal); J44.9 Chronic obstructive pulmonary disease, unspecified; Z87.891 Personal history of nicotine dependence; Z79.899 Other long term (current) drug therapy | CPT/HCPCS: 99214 ==

== ENCOUNTER → 2020-04-06 14:02 | Outpatient (BNVA) | payer MEDICARE, OTHER, SELFPAY | PROVIDERS: PCP Family Medicine; Visit Provider Nurse Practitioner Family | DX: Z20.828 Contact with and (suspected) exposure to other viral communicable diseases (principal); J06.9 Acute upper respiratory infection, unspecified | CPT/HCPCS: 87635 ==

== ENCOUNTER 2020-04-09 10:14 | Outpatient (CLI) | payer MEDICARE, OTHER, SELFPAY ==
[2020-04-09 10:47] VITALS: BP 102/68
== END 2020-04-09 10:15 | disposition home or self-care (01) ==
LOC: RT 10:18
PROVIDERS: PCP Family Medicine; Visit Provider Internal Medicine Pulmonary Disease
DX: J44.9 Chronic obstructive pulmonary disease, unspecified (principal)
CPT/HCPCS: 94618

== ENCOUNTER 2020-04-16 14:34 | Outpatient (CLI) | payer MEDICARE, OTHER, SELFPAY ==
--- NOTE | 2020-04-16 15:00 | USCV_ITS ---
Geneva Clark Age: 84 Gender: F : 1935 Exam Date: 04/16/2020 15:01 Ordering Phys: Rocio Mckeon MD ([email or web address]) Technologist: Lakesha Jaramillo Exam Location: [facility] [place] Indication: BP: 104 / 52 HR: 82 Rhythm: Atrial fibrillation Technical Quality: Fair MEASUREMENTS (Male / Female) Normal Values 2D ECHO LV Diastolic Diameter PLAX 4.3 cm 4.2 - 5.9 / 3.9 - 5.3 cm LV Systolic Diameter PLAX 1.8 cm LV Chamber Size 3.6 cm IVS Diastolic Thickness 1.2 cm 0.6 - 1.0 / 0.6 - 0.9 cm IVS Systolic Thickness 2.4 cm LVPW Diastolic Thickness 0.9 cm 0.6 - 1.0 / 0.6 - 0.9 cm LVPW Systolic Thickness 1.7 cm RV Chamber Size 3.9 cm LVOT Diameter 2.0 cm LV Ejection Fraction 2D Teich 88.2 % LV Ejection Fraction MOD 2C 44.5 % LV Ejection Fraction 2C AL 45.7 % LA Diameter 4.9 cm LA Width 3.8 cm LA Height 5.0 cm RA Width 4.3 cm RA Height 5.3 cm Aorta at Sinotubular Diameter 2.5 cm M-MODE LV Diastolic Diameter MM 5.1 cm 4.2 - 5.9 / 3.9 - 5.3 cm LV Systolic Diameter MM 3.7 cm LV Ejection Fraction MM Teich 53.9 % IVS Diastolic Thickness MM 1.3 cm 0.6 - 1.0 / 0.6 - 0.9 cm IVS Systolic Thickness MM 1.7 cm LVPW Diastolic Thickness MM 1.7 cm 0.6 - 1.0 / 0.6 - 0.9 cm LVPW Systolic Thickness MM 1.6 cm Aortic Annulus Diameter 3.1 cm LA Ao Ratio MM 1.7 MV E Point Septal Separation 0.9 cm DOPPLER AV Peak Velocity 274.0 cm/s LVOT Peak Velocity 54.3 cm/s AV Area Cont Eq vti 0.5 cm squared AV Area Cont Eq pk 0.6 cm squared MV E' Velocity 14.0 cm/s TR Peak Velocity 278.1 cm/s TR Peak Gradient 30.9 mmHg TR Mean Velocity 210.1 cm/s TR Mean Gradient 19.2 mmHg TR Velocity Time Integral 74.7 cm TV Peak E Velocity 121.0 cm/s Right Atrial Pressure 8.0 mmHg Pulmonary Artery Systolic Pressu 38.9 mmHg PV Peak Velocity 45.0 cm/s FINDINGS Left Ventricle Normal left ventricular cavity size. Normal left ventricular systolic function. No regional wall motion abnormalities. Left ventricular ejection fraction is estimated at 55 %. In the presence of atrial fibrillation diastolic function cannot be assessed accurately. Right Ventricle The right ventricle is normal in size and function. Moderate pulmonary hypertension, RVSP 38.9 mmHg. Right Atrium The right atrium is normal in size. Left Atrium Severely increased left atrial size. Mitral Valve Severely thickened mitral valve. Severe mitral annular calcification. No mitral valve stenosis. Severe mitral valve regurgitation. Aortic Valve Severe aortic valve calcification. Severe aortic valve stenosis, mean gradient 14.2 mmHg, GUS 0.49 cm squared.trace aortic valve regurgitation. Velocity across the aortic valve is 2.7 m/s Tricuspid Valve Moderate to severe tricuspid valve regurgitation. Pulmonic Valve Structurally normal pulmonic valve without significant stenosis. There is no pulmonic regurgitation. Pericardium Normal pericardium without effusion. Aorta Normal ascending aorta dimension. CONCLUSIONS 1-Normal left ventricular cavity size. Normal left ventricular systolic function. No regional wall motion abnormalities. Left ventricular ejection fraction is estimated at 55 %. In the presence of atrial fibrillation diastolic function cannot be assessed accurately. 2-The right ventricle is normal in size and function. Moderate pulmonary hypertension, RVSP 38.9 mmHg. 3-Severely increased left atrial size. 4-Severe aortic valve calcification. Severe aortic valve stenosis, mean gradient 14.2 mmHg, GUS 0.49 cm squared.trace aortic valve regurgitation. Velocity across the aortic valve is 2.7 m/s 5-Severely thickened mitral valve. Severe mitral annular calcification. No mitral valve stenosis. Severe mitral valve regurgitation. 6-There is no pericardial effusion. 7-Right atrial pressure is around 5 mm of mercury. 8-When compared to the prior echocardiogram dated 26 July 2019 this study is suboptimal in imaging however there is worsening of aortic stenosis from moderate to severe to severe now. Due to low pressure gradient across the aortic valve if indicated transesophageal echocardiogram or left heart may be considered for proper estimation of aortic valve stenosis. Rocio Mckeon MD (Electronically Signed) Final Date: 16 April 2020 17:18 S
== END 2020-04-16 14:35 | disposition home or self-care (01) ==
LOC: RAD 14:39
PROVIDERS: PCP Family Medicine; Visit Provider Internal Medicine Cardiovascular Disease
DX: I27.20 Pulmonary hypertension, unspecified (principal); I08.0 Rheumatic disorders of both mitral and aortic valves; I48.91 Unspecified atrial fibrillation
CPT/HCPCS: 93306

== ENCOUNTER 2020-04-16 14:42 | Outpatient (CLI) | payer MEDICARE, OTHER, SELFPAY ==
--- NOTE | 2020-04-16 16:00 | CT_ITS ---
WS: [id number] CT CHEST , high resolution. HISTORY: Rule out interstitial lung disease TECHNIQUE: High-resolution imaging of the chest performed with and without inspiration, supine and pr one positioning. All CT scans at [facility] use at least one of these dose optimization te chniques: automated exposure control; mA and/or kV adjustment per patient size (includes targeted exa ms where dose is matched to clinical indication); or iterative reconstruction. CONTRAST: None DLP: 241.42 mGy.cm COMPARISON: 01/25/2020 Marked pulmonary hyperexpansion. Lungs are hyperexpanded despite significant interstitial lung diseas e. There is interstitial thickening noted bilaterally with bronchial wall thickening. There has been a significant improvement in the interstitial thickening since 01/25/2020. Bronchiectasis at the media l LEFT upper lobe. Additional early changes of bronchiectasis at the lung bases and mild honeycombing at the RIGHT lung base. Ovoid nodule measuring 10 mm the LEFT lower lobe smaller in size as compared to 01/25/2020. Significant enlargement of the heart. Marked biatrial enlargement. Heavy calcification along the mitr al annular valve plane and throughout the coronary arteries. Extensive atherosclerosis aorta with mil d pulmonary arterial hypertension. CT/CT chest wo con [id number] IMPRESSION: 1. 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 I suspect there may be still an acute component as described on 01/25/2020 superimposed o n the chronic interstitial fibrotic changes. Consider short-term follow-up exam ination to evaluate for further resolution of an acute process superimposed on a chronic disease. 2. Bronchiectasis and honeycombing are both evident as described above. 3. 10 mm LEFT lower lobe pulmonary nodule new since 12/01/2016 but slightly dec reased in size since 01/25/2020. 4. Marked biatrial enlargement with pulmonary hypertension.
== END 2020-04-16 14:43 | disposition home or self-care (01) ==
LOC: RAD 14:45
PROVIDERS: PCP Family Medicine; Visit Provider Internal Medicine Pulmonary Disease
DX: J44.9 Chronic obstructive pulmonary disease, unspecified (principal); R91.1 Solitary pulmonary nodule; I27.20 Pulmonary hypertension, unspecified; I51.7 Cardiomegaly
CPT/HCPCS: 71250

== ENCOUNTER → 2020-06-05 14:55 | Outpatient (BNVA) | payer MEDICARE, OTHER, SELFPAY | PROVIDERS: PCP Family Medicine; Referring Provider Family Medicine; Visit Provider Podiatrist Foot & Ankle Surgery | DX: M79.672 Pain in left foot (principal); M19.072 Primary osteoarthritis, left ankle and foot; M77.32 Calcaneal spur, left foot | CPT/HCPCS: 73630 ==

== ENCOUNTER 2020-06-11 15:25 | Outpatient (CLI) | payer MEDICARE, OTHER, SELFPAY ==
--- NOTE | 2020-06-11 15:31 | XR_ITS ---
WS: [id number] SCREENING DEXA SCAN [employer] CLINICAL INFORMATION: POSTMENOPAUSAL COMPARISON: None. FINDINGS: The L1-L4 bone mineral density measures 1.276 g/cm2. This corresponds to a T score score of 0.8 and Z score of 3.1. Left femoral neck bone mineral density measures 0.749 g/cm2. This corresponds to a T score of -2.1 an d Z score of 0.5. Right femoral neck bone mineral density measures 0.772 g/cm2. This corresponds to a T score -1.9of an d Z score of 0.7. Mean femoral neck bone mineral density measures 0.760 g/cm2. This corresponds to a T score of -2.0 an d Z score of 0.6. XR/XR DEXA axial skeleton* [id number] IMPRESSION: Normal bone mineralization in the lumbar spine. Osteopenia in the femoral necks . Patient's FRAX calculated 10 year probability for major osteoporotic fracture i s 36.7 % and osteoporotic hip fracture is 14.7%.
== END 2020-06-11 15:26 | disposition home or self-care (01) ==
LOC: RADWPI 15:26
PROVIDERS: PCP Family Medicine; Visit Provider Family Medicine
DX: Z78.0 Asymptomatic menopausal state (principal); M85.88 Other specified disorders of bone density and structure, other site
CPT/HCPCS: 77080

== ENCOUNTER → 2020-07-27 09:58 | Outpatient (BNVA) | payer MEDICARE, OTHER, SELFPAY | PROVIDERS: PCP Family Medicine; Visit Provider Internal Medicine Rheumatology | DX: M06.9 Rheumatoid arthritis, unspecified (principal); Z79.899 Other long term (current) drug therapy | CPT/HCPCS: 36415 ==

== ENCOUNTER → 2020-08-03 10:02 | Outpatient (BNVA) | payer MEDICARE, OTHER, SELFPAY | PROVIDERS: PCP Family Medicine; Visit Provider Internal Medicine Rheumatology | DX: M05.79 Rheumatoid arthritis with rheumatoid factor of multiple sites without organ or systems involvement (principal); J84.9 Interstitial pulmonary disease, unspecified; Z79.899 Other long term (current) drug therapy; I35.0 Nonrheumatic aortic (valve) stenosis; Z87.891 Personal history of nicotine dependence; M06.9 Rheumatoid arthritis, unspecified; R09.89 Other specified symptoms and signs involving the circulatory and respiratory systems | CPT/HCPCS: 71046; 99214 ==

== ENCOUNTER 2020-08-03 10:53 | Outpatient (CLI) | payer MEDICARE, OTHER, SELFPAY ==
--- NOTE | 2020-08-03 11:45 | XR_ITS ---
WS: [id number] PROCEDURE: XR chest 2V* [id number] CLINICAL INFORMATION: M06.9 - Rheumatoid arthritis, unspecified COMPARISON: February 07, 2020 FINDINGS: Heart: Cardiomegaly. Aortic calcification. Lungs: Chronic emphysematous changes. Again seen are chronic interstitial thickening and infiltrate s imilar to previous most consistent with pulmonary fibrosis. Tiny bilateral pleural effusions or pleur al thickening. No focal consolidation. Bones: Osteopenia. Moderate thoracic kyphosis. XR/XR chest 2V* [id number] IMPRESSION: 1. Chronic changes of pulmonary fibrosis similar in appearance the prior exami nations. No focal pneumonia. 2. Stable cardiomegaly. 3. Tiny bilateral pleural effusions or pleural thickening.
== END 2020-08-03 10:54 | disposition home or self-care (01) ==
PROVIDERS: PCP Family Medicine; Visit Provider Internal Medicine Rheumatology
DX: M06.9 Rheumatoid arthritis, unspecified (principal); R09.89 Other specified symptoms and signs involving the circulatory and respiratory systems; Z79.899 Other long term (current) drug therapy
CPT/HCPCS: 71046

== ENCOUNTER → 2020-10-12 10:40 | Outpatient (BNVA) | payer MEDICARE, OTHER, SELFPAY | PROVIDERS: PCP Family Medicine; Visit Provider Internal Medicine Pulmonary Disease | DX: R06.02 Shortness of breath (principal); Z20.822 Contact with and (suspected) exposure to COVID-19 | CPT/HCPCS: 87635 ==

== ENCOUNTER 2020-10-15 09:18 | Outpatient (CLI) | payer MEDICARE, OTHER, SELFPAY ==
--- NOTE | 2020-10-15 11:12 | PFTS_ITS ---
Date of Study:10/15/20 Date of Dictation: 10/16/2020 MECHANICS: Postbronchodilator forced vital capacity (FVC) is reduced Postbronchodilator forced expiratory volume in one second (FEV1) is moderately reduced 51% - 0.78 L FEV1/FVC is normal. There is no significant response to bronchodilator. FLOW VOLUME LOOP: Normal. . LUNG VOLUMES: Total lung capacity (TLC) is reduced 57%. Residual volume (RV) is severely reduced 41%. DIFFUSING CAPACITY FOR CARBON MONOXIDE: Moderately reduced 48%. . INTERPRETATION: The pulmonary function tests are consistent with moderate to severe restrictive lung disease. Lung volumes also show severe restriction. There is moderate gas transfer defect. Clinical correlation recommended. [facility]
== END 2020-10-15 09:19 | disposition home or self-care (01) ==
LOC: RT 09:25
PROVIDERS: PCP Family Medicine; Visit Provider Internal Medicine Pulmonary Disease
DX: J44.9 Chronic obstructive pulmonary disease, unspecified (principal)
CPT/HCPCS: 94060; 94618; 94726; 94729; J7611

== ENCOUNTER 2020-10-16 10:33 | Outpatient (CLI) | payer MEDICARE, OTHER, SELFPAY ==
--- NOTE | 2020-10-16 11:00 | CT_ITS ---
WS: [id number] CT CHEST CT-HIGH RESOLUTION, NONCONTRAST. HISTORY: Interstitial lung disease. Technique: High-resolution chest CT is performed in inspiration, expiration, supine and prone positio alvino. All CT scans at [facility] use at least one of these dose optimization techniques: automa prabhu exposure control; mA and/or kV adjustment per patient size (includes targeted exams where dose is matched to clinical indication); or iterative reconstruction. DLP: 247.61 mGy.cm COMPARISON: 04/16/2020 and 01/25/2020 Findings: Lung volumes are not significantly reduced. There are significant reticulations and scatter ed areas of interstitial thickening bilaterally. There is bronchiectasis and honeycombing in the uppe r and lower lung araujo. More focal areas of consolidation in the lingula. There are conglomerate opa cifications in the RIGHT middle lobe and along the fissures. There is thickening and nodularity of th e fissures. Small RIGHT pleural effusion is new. No pneumothorax. No definite adenopathy seen on this exam. Heart is markedly enlarged. Moderate-sized hiatal hernia. CT/CT chest wo con [id number] Impression: 1. 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 Fibrotic changes with honeycombing and bronchiectasis and con solidations involving upper and lower lung araujo and there is also peribronchi al wall thickening. These findings may be an alternative pattern for UIP. Also consider hypersensitivity pneumonia and connective tissue disease related ILD. 2. New small RIGHT pleural effusion. 3. Severe cardiomegaly.
== END 2020-10-16 10:34 | disposition home or self-care (01) ==
LOC: CT 10:36
PROVIDERS: PCP Family Medicine; Visit Provider Internal Medicine Pulmonary Disease
DX: J44.9 Chronic obstructive pulmonary disease, unspecified (principal); J84.9 Interstitial pulmonary disease, unspecified; I51.7 Cardiomegaly
CPT/HCPCS: 71250

== ENCOUNTER 2020-10-22 08:42 | Outpatient (CLI) | payer MEDICARE, OTHER, SELFPAY ==
--- NOTE | 2020-10-22 09:03 | XR_ITS ---
WS: [id number] Exam: XR chest 2V* [id number] Date/Time of Exam: 10/22/2020 9:12 AM Reason For Exam: LEFT SIDED RIB PAIN Comparison 01/24/2020. Extensive chronic interstitial fibrotic changes are noted. No consolidated infiltrates or pleural eff usions. The lungs are fully expanded. The heart is enlarged. The mediastinum is not widened. Regional bony structures appear to be intact. Calcification of the mitral valve annulus. XR/XR chest 2V* [id number] IMPRESSION: 1. Stented chronic interstitial fibrotic changes. 2. Cardiac enlargement.
--- NOTE | 2020-10-22 09:03 | XR_ITS ---
WS: [id number] Exam: XR ribs LT 2V* [id number] Date/Time of Exam: 10/22/2020 9:12 AM Reason For Exam: LEFT SIDED RIB PAIN No obvious acute left rib fracture is seen. The left lung is fully expanded. XR/XR ribs LT 2V* [id number] IMPRESSION: 1. No sign of acute left rib fracture or pneumothorax.
== END 2020-10-22 08:43 | disposition home or self-care (01) ==
LOC: RAD 08:52
PROVIDERS: PCP Family Medicine; Visit Provider Family Medicine
DX: R07.81 Pleurodynia (principal); I51.7 Cardiomegaly
CPT/HCPCS: 71046; 71100

== ENCOUNTER → 2020-11-02 12:32 | Outpatient (BNVA) | payer MEDICARE, OTHER, SELFPAY | PROVIDERS: PCP Family Medicine; Visit Provider Internal Medicine Rheumatology | DX: M05.79 Rheumatoid arthritis with rheumatoid factor of multiple sites without organ or systems involvement (principal); Z79.899 Other long term (current) drug therapy; J84.9 Interstitial pulmonary disease, unspecified; Z87.891 Personal history of nicotine dependence | CPT/HCPCS: 36415; 80076; 82565; 85025; 86140; 99214 ==

== ENCOUNTER 2021-01-06 09:10 | Outpatient (CLI) | payer MEDICARE, OTHER, SELFPAY ==
--- NOTE | 2021-01-06 09:30 | USCV_ITS ---
Geneva Clark Age: 85 Gender: F : 1935 Exam Date: 01/06/2021 09:30 Ordering Phys: Rocio Mckeon MD ([email or web address]) Technologist: Ember Pierson Exam Location: [facility] [place] Indication: BP: / HR: 69 Rhythm: Sinus Technical Quality: Adequate MEASUREMENTS (Male / Female) Normal Values 2D ECHO LV Diastolic Diameter PLAX 3.3 cm 4.2 - 5.9 / 3.9 - 5.3 cm LV Systolic Diameter PLAX 2.1 cm LV Chamber Size 3.4 cm IVS Diastolic Thickness 1.2 cm 0.6 - 1.0 / 0.6 - 0.9 cm IVS Systolic Thickness 1.3 cm LVPW Diastolic Thickness 1.5 cm 0.6 - 1.0 / 0.6 - 0.9 cm LVPW Systolic Thickness 1.2 cm RV Chamber Size 3.4 cm LVOT Diameter 2.0 cm LV Ejection Fraction 2D Teich 65.5 % LV Ejection Fraction MOD 2C 69.8 % LV Ejection Fraction 2C AL 72.0 % LA Diameter 4.6 cm LA Width 4.7 cm LA Height 6.1 cm RA Width 5.1 cm RA Height 5.4 cm Aorta at Sinotubular Diameter 2.9 cm M-MODE LV Diastolic Diameter MM 3.9 cm 4.2 - 5.9 / 3.9 - 5.3 cm LV Systolic Diameter MM 2.1 cm LV Ejection Fraction MM Teich 77.5 % IVS Diastolic Thickness MM 0.9 cm 0.6 - 1.0 / 0.6 - 0.9 cm IVS Systolic Thickness MM 1.3 cm LVPW Diastolic Thickness MM 1.1 cm 0.6 - 1.0 / 0.6 - 0.9 cm LVPW Systolic Thickness MM 1.6 cm RV Diastolic Diameter MM 3.3 cm Aortic Annulus Diameter 3.1 cm LA Ao Ratio MM 1.5 MV E Point Septal Separation 0.6 cm DOPPLER AV Peak Velocity 310.3 cm/s LVOT Peak Velocity 58.0 cm/s AV Area Cont Eq vti 0.6 cm squared AV Area Cont Eq pk 0.6 cm squared MV Area PHT 4.8 cm squared MV E' Velocity 68.5 cm/s Mitral E to MV E' Ratio 9.1 Mitral E to LV E' Lateral Ratio 8.0 Mitral E to LV E' Septal Ratio 10.4 TR Peak Velocity 277.1 cm/s TR Peak Gradient 30.7 mmHg TR Mean Velocity 193.7 cm/s TR Mean Gradient 17.5 mmHg TR Velocity Time Integral 78.7 cm Right Atrial Pressure 3.0 mmHg Pulmonary Artery Systolic Pressu 33.7 mmHg PV Peak Velocity 110.3 cm/s RV Acceleration Time 0.1 s RV Ejection Time 0.3 s RV AcT/ET 0.4 FINDINGS Left Ventricle Normal left ventricular cavity size. Normal left ventricular systolic function. No regional wall motion abnormalities. Left ventricular ejection fraction is estimated at 65 %. In the presence of atrial fibrillation diastolic function cannot be assessed accurately. Right Ventricle Normal right ventricular size. Mild pulmonary hypertension, RVSP 33.7 mmHg. Right Atrium Moderately increased right atrial size. Left Atrium Severely increased left atrial size. Mitral Valve Severely thickened mitral valve. Severe mitral annular calcification. No mitral valve stenosis. Moderate to severe mitral valve regurgitation. Aortic Valve Severe aortic valve stenosis, mean gradient 15.3 mmHg, GUS 0.63 cm squared. Trace aortic valve regurgitation. Tricuspid Valve Mild tricuspid valve regurgitation. Pulmonic Valve Structurally normal pulmonic valve without significant stenosis. There is no pulmonic regurgitation. Pericardium Normal pericardium without effusion. Aorta Normal ascending aorta dimension. CONCLUSIONS 1-Normal left ventricular cavity size. Normal left ventricular systolic function. No regional wall motion abnormalities. Left ventricular ejection fraction is estimated at 65 %. In the presence of atrial fibrillation diastolic function cannot be assessed accurately. 2-Severely increased left atrial size. 3-Moderately increased right atrial size. 4-Severely thickened mitral valve. Severe mitral annular calcification. No mitral valve stenosis. Moderate to severe mitral valve regurgitation. 5-Severe aortic valve stenosis, mean gradient 15.3 mmHg, GUS 0.63 cm squared. Trace aortic valve regurgitation. 6-Mild tricuspid valve regurgitation. 7-There is no pericardial effusion. 8-Normal right ventricular size. Mild pulmonary hypertension, RVSP 33.7 mmHg. 9-Right atrial pressure is around 5 mm of mercury. 10-No significant change since the prior echocardiogram study of 04/16/2020. Rocio Mckeon MD (Electronically Signed) Final Date: 06 January 2021 19:39 S
== END 2021-01-06 09:11 | disposition home or self-care (01) ==
PROVIDERS: PCP Family Medicine; Visit Provider Internal Medicine Cardiovascular Disease
DX: R06.02 Shortness of breath (principal); I48.91 Unspecified atrial fibrillation; I08.3 Combined rheumatic disorders of mitral, aortic and tricuspid valves; I27.20 Pulmonary hypertension, unspecified
CPT/HCPCS: 93306

== ENCOUNTER 2021-02-11 11:50 | Outpatient (CLI) | payer MEDICARE, OTHER, SELFPAY ==
--- NOTE | 2021-02-11 | USCV_ITS ---
Dobutamine Stress Echo Geneva Clark Age: 85 Gender: F : 1935 Exam Date: 02/11/2021 13:07 Ordering Phys: Leann Bowers Technologist: Exam Location: [facility] – [place] Indication: CHEST PAIN Rhythm: Sinus Patient History: Chest pain Cardiac Medications: Medications in past 24 hours: Contrast: Total Dose (mL): Stress Results Protocol: Pharmacologic Peak Dose (???g/kg/min): Duration (min:sec): 10:22 Atropine:(mg) Target HR: 114 Double Product: 00982 Resting HR: 65 Resting BP: 127 / 88 Peak HR: 126 Peak BP: 140 / 88 Max Predicted HR: 134 94 % Max Predicted HR Stress Summary: The hemodynamic response to the patient's target heart rate was achieved. BP Response: Normal Reason for Termination: The patients target heart rate was achieved Cardiac Symptoms: None ECG Analysis Resting EKG: Stress EKG: Arrhythmia: MEASUREMENTS (Male/Female) Normal Values FINDINGS 1. At the baseline, the patient's blood pressure was 127/88 mmHg with a heart rate of 65 beats per minute. The electrocardiogram showed atrial fibrillation with nonspecific ST depression. The chest examination revealed normal breath sounds with no rales or rhonchi. The CVS examination revealed normal heart sounds. 2. The Dobutamine was infused over 10 minutes and 22 seconds. The maximum heart rate obtained was 126 beats per minute. The patient attained 94% of the maximum predicted heart rate. The blood pressure at the end of the infusion was 104/47 mmHg. Patient did not have any chest pain or any significant electrocardiogram changes with the Dobutamine infusion. The physical examination remained unchanged. No arrhythmias were seen on the monitor. 3. At the baseline, the patient's echocardiogram revealed normal cardiac chamber sizes with normal LV ejection fraction of 65 %. Increased left ventricle wall thickness. Segmental wall motion analysis revealed no regional wall motion abnormality. There were no intracardiac masses. No significant pericardial effusion. Aortic valve appear markedly thickened and calcified and appeared to have probably moderate to severe aortic stenosis 4. With the low and the peak Dobutamine infusion, there was good augmentation of all the segments with no Dobutamine-induced wall motion abnormalities. 5. During the recovery phase, the patient did not have any symptoms or any EKG changes. The blood pressure at the end of the recovery phase was 121/74 mmHg with a heart rate of 77 beats per minute. 6. The echocardiogram during the recovery phase also did not reveal any new changes. CONCLUSIONS 1. Normal electrocardiogram response to Dobutamine infusion. 2. Normal echocardiographic response to Dobutamine infusion. 3. No Dobutamine-induced chest pain or cardiac arrhythmia. 4. Aortic valve appear markedly thickened and calcified and appeared to have probably moderate to severe aortic stenosis Unfortunately aortic stenosis was not evaluated during the study. 5. Clinical correlation is recommended. Susan Adam MD (Electronically Signed) Final Date: 16 February 2021 19:20 Amended: 16 February 2021 19:24 C
--- NOTE | 2021-02-11 12:31 | ECG_ITS ---
[facility] Test Date: 2021-02-11 Pat Name: Geneva Clark Department: Room: Gender: Female [employer]: : 1935 Requested By: Leann Bowers Order Number: [id number] Bryant MD: Susan Adam M.D. Interpretive Statements NAME OF STUDY: DOBUTAMINE STRESS ECHOCARDIOGRAM INDICATION: Chest Pain PROCEDURE: At the baseline, the blood pressure was 127/88 mmHg, oxygen saturation 93% with a heart rate of 68 bpm. The electrocardiogram showed atrial fibrillation with controlled ventricular response. Normal axis with nonspecific ST depression. The dobutamine was infused over a period of 10 minutes 22 seconds. The maximum heart rate obtained was 126 (94 % of the maximum predicted heart rate). The blood pressure at that time was 104/47 mmHg. The patient did not have any chest pain or any significant electrocardiogram changes with the dobutamine infusion. The physical examination remained unchanged. No arrhythmias were seen on the monitor. The study was terminated due to protocol completion and achievement of maximum heart rate. During the recovery phase, the patient did not have any specific symptoms. The blood pressure at the end of the recovery phase was 121/74 mmHg, oxygen saturation 92% with a heart rate of 77 beats per minute. Echocardiographic images were obtained at rest, low and peak dobutamine infusion and in recovery. CONCLUSION: 1. Normal EKG changes with dobutamine infusion. 2. Normal blood pressure and heart rate response to dobutamine infusion. 3. Functional status could not be assessed given pharmacological protocol. 4. Echocardiographic portion of the study pending; see separate report. Electronically Signed On 02-15-2021 18:49:42 CDT by Susan Adam M.D. [email or web address]/store/[id number]
[2021-02-11 12:42] VITALS: BMI 24.0
[2021-02-11] MEDS: DOBUTtamine 200 MG in sodium chloride 0.9% 34 ML 8 MG IV (13:10)
[2021-02-11 13:31] VITALS: BP 121/74; PULSE 77
== END 2021-02-11 11:51 | disposition home or self-care (01) ==
PROVIDERS: PCP Family Medicine; Visit Provider Nurse Practitioner Family
DX: R07.9 Chest pain, unspecified (principal); I35.8 Other nonrheumatic aortic valve disorders
CPT/HCPCS: 93017; 93350; J1250; J7050

== ENCOUNTER → 2021-02-23 09:10 | Outpatient (BNVA) | payer MEDICARE, OTHER, SELFPAY | PROVIDERS: PCP Family Medicine; Visit Provider Internal Medicine Rheumatology | DX: M05.79 Rheumatoid arthritis with rheumatoid factor of multiple sites without organ or systems involvement (principal); Z79.899 Other long term (current) drug therapy; M19.90 Unspecified osteoarthritis, unspecified site | CPT/HCPCS: 36415; 80076; 82565; 85025; 86140 ==

== ENCOUNTER 2021-03-03 10:34 | Outpatient (CLI) | payer MEDICARE, OTHER, SELFPAY ==
--- NOTE | 2021-03-03 | USCV_ITS ---
Dobutamine Stress Echo Geneva Clark Age: 85 Gender: F : 1935 Exam Date: 03/03/2021 11:42 Ordering Phys: Leann Bowers Technologist: DUNIA Exam Location: [facility] [place] Indication: low gradient severe aortic stenosis Rhythm: Sinus Patient History: low gradient aortic stenosis Cardiac Medications: Medications in past 24 hours: Contrast: Total Dose (mL): Stress Results Protocol: Pharmacologic Peak Dose (???g/kg/min): Duration (min:sec): 10:21 Atropine:(mg) Target HR: 114 Double Product: 59577 Resting HR: 65 Resting BP: 125 / 70 Peak HR: 127 Peak BP: 166 / 70 Max Predicted HR: 134 95 % Max Predicted HR Stress Summary: The patient exhibited a hypotensive response with stress. BP Response: Normal Reason for Termination: The patients target heart rate was achieved Cardiac Symptoms: None ECG Analysis Resting EKG: Stress EKG: Arrhythmia: MEASUREMENTS (Male/Female) Normal Values 2D ECHO LVOT Diameter 2.0 cm DOPPLER AV Peak Velocity 304.5 cm/s LVOT Peak Velocity 54.0 cm/s AV Area Cont Eq vti 0.9 cm squared AV Area Cont Eq pk 0.6 cm squared FINDINGS At rest: Left ventricular ejection fraction appears to be normal estimated ejection fraction 55%. Severe left atrial enlargement. Velocity across the aortic valve 2.36 m/s. Aortic valve peak pressure gradient 22 mmHg, mean pressure gradient 9.7 mmHg. Aortic valve area 0.9 cm squared, aortic valve index 0.61 At 10 irene gram dobutamine dose: Left ventricle ejection fraction was recommended left ventricle ejection fraction increased to 65 to 70%, velocity across the aortic valve 3.1 m/s, aortic valve peak pressure gradient 39 mmHg mean pressure gradient 16 mmHg aortic valve area 1.01 cm care aortic valve index 0.68 At 20 mcg of dobutamine dose: Left ventricle ejection fraction was hyperdynamic no wall motion abnormality noted. Velocity across aortic valve 2.8 m/s, aortic valve peak pressure gradient 31.9 mmHg, aortic valve mean pressure gradient 10.4 mmHg. Aortic valve area 1.01 cm2 aortic valve index 0.68 CONCLUSIONS Left ventricular ejection fraction was normal at the baseline, augmentation of cavity was good without significant wall motion abnormality upon infusion of dobutamine Infusion of 20 mcg dobutamine. Aortic valve area increased from 0.9 cm squared with a mean gradient of 22 mmHg to aortic valve area 1.01 cm squared with mean pressure gradient of 10 mmHg.. Aortic valve area improved slightly however still remains in severe category. Rocio Mckeon MD (Electronically Signed) Final Date: 09 March 2021 22:01 S
[2021-03-03 11:18] VITALS: BMI 24.0
--- NOTE | 2021-03-03 11:22 | ECG_ITS ---
[facility] Test Date: 2021-03-03 Pat Name: Geneva Clark Department: Room: Gender: Female [employer]: : 1935 Requested By: Leann Bowers Order Number: [id number] Annette MD: MONIQUE HOANG Interpretive Statements NAME OF STUDY: DOBUTAMINE STRESS ECHOCARDIOGRAM INDICATION: Low gradient severe aortic stenosis, EXERCISE DATA: Dobutamine was infused as per protocol. Baseline heart rate was 65 beats per minute. Baseline blood pressure was 125/70 millimeters of mercury. Target heart rate was 134 beats per minute. Maximum heart rate achieved was 127, which was 94 % of the target heart rate. Maximum blood pressure was 166/70 millimeters of mercury. Total infusion time was 10 minutes 21 seconds. The reason for ending the test was completion of the protocol. The patient complained of shortness of breath during the stress test, which then resolved at the end of the test. ELECTROCARDIOGRAM: BASELINE: Atrial fibrillation, normal axis, no significant ST-T changes at the baseline noted. EXERCISE: At the peak exercise level, no significant ST-T changes suggestive of ischemia noted. RECOVERY: During the recovery period, heart rate dropped appropriately. No significant ST-T changes in the recovery suggestive of ischemia noted. CONCLUSION: 1. Heart rate response was appropriate. 2. Blood pressure response was appropriate. 3. Symptoms not suggestive of ischemia. 4. Electrocardiogram portion of the stress test was not suggestive of ischemia. 5. Imaging result will be documented separately. Electronically Signed On 03-04-2021 21:12:13 CDT by MONIQUE HOANG [id number]
[2021-03-03] MEDS: DOBUTtamine 200 MG in sodium chloride 0.9% 34 ML 8 MG IV (11:49)
[2021-03-03] MEDS: ondansetron 2 mg/ML SDV 2 mL 4 MG IVP (12:03)
[2021-03-03 12:12] VITALS: BP 118/63; PULSE 77
== END 2021-03-03 10:35 | disposition home or self-care (01) ==
LOC: CDL 10:42
PROVIDERS: PCP Family Medicine; Visit Provider Nurse Practitioner Family
DX: M05.79 Rheumatoid arthritis with rheumatoid factor of multiple sites without organ or systems involvement (principal); J84.9 Interstitial pulmonary disease, unspecified; Z79.899 Other long term (current) drug therapy; L98.499 Non-pressure chronic ulcer of skin of other sites with unspecified severity; Z71.89 Other specified counseling; I35.0 Nonrheumatic aortic (valve) stenosis
CPT/HCPCS: 93017; 93350; 99214; J1250; J2405; J7050

== ENCOUNTER → 2021-06-21 15:16 | Outpatient (BNVA) | payer MEDICARE, OTHER, SELFPAY | PROVIDERS: PCP Family Medicine; Visit Provider Internal Medicine Rheumatology | DX: M05.79 Rheumatoid arthritis with rheumatoid factor of multiple sites without organ or systems involvement (principal); J84.9 Interstitial pulmonary disease, unspecified; Z79.899 Other long term (current) drug therapy; Z71.89 Other specified counseling | CPT/HCPCS: 99214 ==

== ENCOUNTER 2021-08-18 14:11 | Outpatient (CLI) | payer MEDICARE, OTHER, SELFPAY ==
--- NOTE | 2021-08-18 14:23 | USCV_ITS ---
Geneva Clark Age: 85 Gender: F : 1935 Exam Date: 08/18/2021 14:40 Ordering Phys: Chandrakant Ballard MD Technologist: CHI Exam Location: [facility] [place] Indication: H/O AO STENOSIS, AO VALVE REPAIRED 07/2021 BP: 100 / 60 HR: 65 Rhythm: Atrial fibrillation Technical Quality: Adequate MEASUREMENTS (Male / Female) Normal Values 2D ECHO LVOT Diameter 2.0 cm LV Ejection Fraction MOD 2C 86.9 % LV Ejection Fraction 2C AL 89.0 % LA Diameter 4.2 cm LA Width 4.8 cm LA Height 6.9 cm RA Width 4.4 cm RA Height 6.6 cm Aorta at Sinotubular Diameter 1.8 cm M-MODE Aortic Annulus Diameter 3.2 cm LA Ao Ratio MM 1.2 MV E Point Septal Separation 0.4 cm DOPPLER AV Peak Velocity 177.0 cm/s LVOT Peak Velocity 63.0 cm/s AV Area Cont Eq vti 1.1 cm squared AV Area Cont Eq pk 1.1 cm squared MV Peak Velocity 164.0 cm/s MV Area PHT 3.9 cm squared MV E' Velocity 76.0 cm/s Mitral E to MV E' Ratio 9.2 Mitral E to LV E' Lateral Ratio 7.4 Mitral E to LV E' Septal Ratio 12.2 TR Peak Velocity 258.7 cm/s TR Peak Gradient 26.8 mmHg TR Mean Velocity 225.8 cm/s TR Mean Gradient 21.2 mmHg TR Velocity Time Integral 75.6 cm TV Peak E Velocity 86.0 cm/s Right Atrial Pressure 3.0 mmHg Pulmonary Artery Systolic Pressu 29.8 mmHg PV Peak Velocity 106.0 cm/s RV Acceleration Time 0.1 s RV Ejection Time 0.3 s RV AcT/ET 0.2 FINDINGS Left Ventricle Normal left ventricular size. LV systolic function is normal with EF of 60-65%. No regional wall motion abnormalities. Right Ventricle The right ventricle is normal in size and function. Right Atrium The right atrium is normal in size. Left Atrium The left atrium is severely dilated Mitral Valve Severe mitral annular calcification without significant stenosis or prolapse. There is moderate mitral regurgitation. Aortic Valve Bioprosthetic aortic valve. DVI is 0.37 and is normal. No significant stenosis or regurgitation Tricuspid Valve Structurally normal tricuspid valve without significant stenosis. Mild tricuspid regurgitation. RVSP is 30-35mmHg Pulmonic Valve Structurally normal pulmonic valve without significant stenosis. There is mild pulmonic regurgitation. Pericardium Normal pericardium without effusion. Aorta Normal ascending aorta dimension. CONCLUSIONS LV systolic function is normal with EF of 60-65% Severely dilated Left atrium Severe mitral annular calcification. Moderate mitral regurgitation Bioprosthetic aortic valve. DVI is 0.37 and is normal. No significant stenosis or regurgitation Mild tricuspid regurgitation Mild pulmonic regurgitation Compared to prior echocardiogram from 01/06/2021, patient has bioprosthetic aortic valve. Gurvinder Russell MD (Electronically Signed) Final Date: 21 August 2021 18:24 S
== END 2021-08-18 14:12 | disposition home or self-care (01) ==
LOC: RAD 14:16
PROVIDERS: PCP Family Medicine; Visit Provider Family Medicine
DX: I08.3 Combined rheumatic disorders of mitral, aortic and tricuspid valves (principal); Z95.2 Presence of prosthetic heart valve
CPT/HCPCS: 93306

== ENCOUNTER → 2021-09-13 10:17 | Outpatient (BNVA) | payer MEDICARE, OTHER, SELFPAY | PROVIDERS: PCP Family Medicine; Visit Provider Internal Medicine Cardiovascular Disease | DX: I48.21 Permanent atrial fibrillation (principal); Z79.01 Long term (current) use of anticoagulants; Z95.2 Presence of prosthetic heart valve; I34.0 Nonrheumatic mitral (valve) insufficiency; J84.9 Interstitial pulmonary disease, unspecified; I27.20 Pulmonary hypertension, unspecified | CPT/HCPCS: 99214 ==

== ENCOUNTER → 2021-09-20 10:09 | Outpatient (BNVA) | payer MEDICARE, OTHER, SELFPAY | PROVIDERS: PCP Family Medicine; Visit Provider Internal Medicine Pulmonary Disease | DX: M05.79 Rheumatoid arthritis with rheumatoid factor of multiple sites without organ or systems involvement (principal); J84.9 Interstitial pulmonary disease, unspecified; Z79.52 Long term (current) use of systemic steroids; I35.0 Nonrheumatic aortic (valve) stenosis; I27.20 Pulmonary hypertension, unspecified; R91.1 Solitary pulmonary nodule; J98.4 Other disorders of lung; Z87.891 Personal history of nicotine dependence | CPT/HCPCS: 99214 ==

== ENCOUNTER 2021-09-23 12:26 | Outpatient (RCR) | payer MEDICARE, OTHER, SELFPAY | END 2021-10-05 23:59 | disposition home or self-care (01) | LOC: CR 12:26 | PROVIDERS: Family Provider Family Medicine; PCP Family Medicine; Referring Provider Internal Medicine Cardiovascular Disease; Visit Provider Internal Medicine Cardiovascular Disease | DX: Z95.2 Presence of prosthetic heart valve (principal) | CPT/HCPCS: 93798 ==

== ENCOUNTER 2021-10-01 13:58 | Outpatient (CLI) | payer MEDICARE, OTHER, SELFPAY ==
--- NOTE | 2021-10-01 14:08 | XR_ITS ---
WS: [id number] Exam: XR knee LT 3V* [id number] Date/Time of Exam: 10/01/2021 2:08 PM Reason For Exam: M05.79 - Rheumatoid arthritis with rheumatoid factor of m... Comparison 08/18/2008. No fracture or dislocation. Moderately advanced degenerative change of the medial joint compartment. No joint effusion seen. Vascular calcifications about the knee. Degenerative change of the posterior patella. XR/XR knee LT 3V* [id number] IMPRESSION: 1. No fracture or dislocation. No joint effusion. 2. Moderate degenerative changes.
== END 2021-10-01 13:59 | disposition home or self-care (01) ==
LOC: RAD 14:01
PROVIDERS: Family Provider Family Medicine; PCP Family Medicine; Visit Provider Internal Medicine Rheumatology
DX: M05.79 Rheumatoid arthritis with rheumatoid factor of multiple sites without organ or systems involvement (principal)
CPT/HCPCS: 73562

== ENCOUNTER → 2021-10-05 14:27 | Outpatient (BNVA) | payer MEDICARE, OTHER, SELFPAY | PROVIDERS: Family Provider Family Medicine; PCP Family Medicine; Visit Provider Internal Medicine Rheumatology | DX: M05.79 Rheumatoid arthritis with rheumatoid factor of multiple sites without organ or systems involvement (principal); J84.9 Interstitial pulmonary disease, unspecified; I50.9 Heart failure, unspecified; Z79.899 Other long term (current) drug therapy; Z71.89 Other specified counseling | CPT/HCPCS: 99214 ==

== ENCOUNTER 2021-10-06 13:30 | Outpatient (RCR) | payer MEDICARE, OTHER, SELFPAY | END 2021-11-04 23:59 | disposition home or self-care (01) | LOC: CR 13:30 | PROVIDERS: Family Provider Family Medicine; PCP Family Medicine; Referring Provider Internal Medicine Cardiovascular Disease; Visit Provider Internal Medicine Cardiovascular Disease | DX: Z95.2 Presence of prosthetic heart valve (principal) | CPT/HCPCS: 85610; 93798 ==

== ENCOUNTER → 2021-10-08 16:24 | Outpatient (BNVA) | payer MEDICARE, OTHER, SELFPAY | PROVIDERS: Family Provider Family Medicine; PCP Family Medicine; Visit Provider Family Medicine Adult Medicine | DX: N39.0 Urinary tract infection, site not specified (principal) | CPT/HCPCS: 81000 ==

== ENCOUNTER 2021-10-12 14:11 | Outpatient (CLI) | payer MEDICARE, OTHER, SELFPAY ==
--- NOTE | 2021-10-12 14:38 | PFTS_ITS ---
Date of Study:10/12/21 Date of Dictation: MECHANICS: Forced vital capacity (FVC) is reduced. Forced expiratory volume in one second (FEV1) is reduced. FEV1/FVC is normal. FLOW VOLUME LOOP: Narrow. LUNG VOLUMES: Total lung capacity (TLC) is reduced. Residual volume (RV) is reduced. DIFFUSING CAPACITY FOR CARBON MONOXIDE: Moderately reduced. INTERPRETATION: The postbronchodilator spirometry is consistent with moderately severe restriction. There is some postbronchodilator response. Lung volumes are consistent with restrictive lung disease. Gas exchange (DLCO) is moderately reduced. MTDD
== END 2021-10-12 14:12 | disposition home or self-care (01) ==
LOC: RT 14:15
PROVIDERS: PCP Family Medicine; Visit Provider Internal Medicine Pulmonary Disease
DX: J44.9 Chronic obstructive pulmonary disease, unspecified (principal)
CPT/HCPCS: 94060; 94618; 94726; 94729; J7611

== ENCOUNTER 2021-10-22 13:28 | Outpatient (CLI) | payer MEDICARE, OTHER, SELFPAY ==
--- NOTE | 2021-10-22 13:30 | CT_ITS ---
WS: [id number] CT CHEST CT-HIGH RESOLUTION, NONCONTRAST. HISTORY: Interstitial lung disease. Technique: High-resolution chest CT is performed in inspiration, expiration, supine and prone positio alvino. All CT scans at [facility] use at least one of these dose optimization techniques: automated exposure control; mA and/or kV adjustment per patient size (includes targeted exams where dose is mat ched to clinical indication); or iterative reconstruction. DLP: 1466.64 mGy.cm COMPARISON: 10/16/2020 Findings: Mild volume loss with extensive bilateral pulmonary reticulations. Coarse reticulations neetu aterally but within the periphery in the upper and lower lung araujo. Early changes of honeycombing i n the RIGHT lung base and RIGHT middle lobe. Mild RIGHT middle lobe and bilateral upper lobe bronchie ctasis. Bilateral scattered opacifications have minimally progressed since the prior exam. With prone positioning no improvement. No pleural or pericardial effusions. The heart is markedly enlarged. Aortic valve replacement. Mitral annular calcification. Extensive ath erosclerotic plaque within the thoracic aorta and proximal great vessels. Impression: 1. Pulmonary changes are most consistent with IUP. Minimal progression since 10/16/2020. There is vol ume loss with bronchiectasis and honeycombing. 2. Severe cardiomegaly. Marked enlargement of the atria.
== END 2021-10-22 13:29 | disposition home or self-care (01) ==
LOC: RAD 13:30
PROVIDERS: PCP Family Medicine; Visit Provider Internal Medicine Pulmonary Disease
DX: J84.9 Interstitial pulmonary disease, unspecified (principal); J98.4 Other disorders of lung; I51.7 Cardiomegaly
CPT/HCPCS: 71250

== ENCOUNTER 2021-11-05 14:21 | Outpatient (RCR) | payer MEDICARE, OTHER, SELFPAY | END 2021-12-05 23:59 | disposition home or self-care (01) | LOC: CR 14:21 | PROVIDERS: Family Provider Family Medicine; PCP Family Medicine; Referring Provider Internal Medicine Cardiovascular Disease; Visit Provider Internal Medicine Cardiovascular Disease | DX: Z95.2 Presence of prosthetic heart valve (principal) | CPT/HCPCS: 93798 ==

== ENCOUNTER → 2021-11-22 10:13 | Outpatient (BNVA) | payer MEDICARE, OTHER, SELFPAY | PROVIDERS: Family Provider Family Medicine; PCP Family Medicine; Visit Provider Internal Medicine Pulmonary Disease | DX: M05.79 Rheumatoid arthritis with rheumatoid factor of multiple sites without organ or systems involvement (principal); J98.4 Other disorders of lung; Z79.52 Long term (current) use of systemic steroids; I35.0 Nonrheumatic aortic (valve) stenosis; I27.20 Pulmonary hypertension, unspecified; R91.1 Solitary pulmonary nodule; J84.9 Interstitial pulmonary disease, unspecified | CPT/HCPCS: 99214 ==

== ENCOUNTER 2021-12-06 14:30 | Outpatient (RCR) | payer MEDICARE, OTHER, SELFPAY | END 2022-01-05 23:59 | disposition home or self-care (01) | LOC: CR 14:30 | PROVIDERS: Family Provider Family Medicine; PCP Family Medicine; Referring Provider Internal Medicine Cardiovascular Disease; Visit Provider Internal Medicine Cardiovascular Disease | DX: Z95.2 Presence of prosthetic heart valve (principal) | CPT/HCPCS: 93798 ==

== ENCOUNTER 2021-12-16 12:30 | Outpatient (CLI) | payer MEDICARE, OTHER, SELFPAY ==
--- NOTE | 2021-12-16 14:17 | PFTS_ITS ---
Date of Study:12/16/21 Date of Dictation: 12/20/2021 MECHANICS: Postbronchodilator forced vital capacity (FVC) is reduced. Postbronchodilator forced expiratory volume in one second (FEV1) is moderately reduced. FEV1/FVC is normal. There is no significant response to bronchodilator.. FLOW VOLUME LOOP: Normal . LUNG VOLUMES: Total lung capacity (TLC) is moderately reduced. Residual volume (RV) is severely reduced. DIFFUSING CAPACITY FOR CARBON MONOXIDE: Moderately reduced . INTERPRETATION: The postbronchodilator spirometry showed moderate restriction.? There is no significant postbronchodilator response.? Lung volumes suggestive of moderate to severe restriction.? There is moderate gas transfer defect. Constellation of findings consistent with interstitial lung disease. Clinical correlation recommended. [facility]
== END 2021-12-16 12:31 | disposition home or self-care (01) ==
LOC: RT 12:31
PROVIDERS: Family Provider Family Medicine; PCP Family Medicine; Visit Provider Internal Medicine Pulmonary Disease
DX: J84.9 Interstitial pulmonary disease, unspecified (principal)
CPT/HCPCS: 94060; 94618; 94726; 94729; J7611

== ENCOUNTER 2021-12-28 11:25 | Outpatient (CLI) | payer MEDICARE, OTHER, SELFPAY ==
[2021-12-28 11:59] LABS: Basophils # 0.1 10^3/uL (0.0-0.1); Basophils % 0.7 %; Eosinophils # 0.4 10^3/uL (0.0-0.8); Eosinophils % 5.1 %; Hematocrit 40.5 % (37.0-47.0); Hemoglobin 12.6 g/dL (11.5-15.3); Lymphocytes % 13.8 %; Mean Corpuscular HGB Conc 31.1 g/dL (30.0-36.0); Mean Corpuscular Hemoglobin 29.8 pg (28.0-34.0); Mean Corpuscular Volume 95.7 fl (81-99); Mean Platelet Volume 11.2 fL (7.4-10.4); Monocytes # 0.8 10^3/uL (0.2-0.9); Monocytes % 10.7 %; Neutrophils % 69.6 %; Nucleated Red Blood Cells % 0 %; Platelet Count 176 10^3/cmm (130-400); Red Blood Count 4.23 10^6/uL (4.1-5.3); Red Cell Distribution Width 15.2 % (12.1-15.1)
[2021-12-28 12:21] LABS: Alanine Aminotransferase 17 U/L (0-33); Albumin Level 3.8 g/dL (3.5-5.2); Alkaline Phosphatase 93 U/L (35-105); Aspartate Amino Transferase 44 U/L (0-32); C Reactive Protein 7.1 mg/L (0.0-4.9); Globulin 4.1 g/dL (1.3-4.6); Total Bilirubin 0.9 mg/dL (0.15-1.2); Total Protein 7.9 g/dL (6.6-8.7)
== END 2021-12-28 11:26 | disposition home or self-care (01) ==
LOC: LAB 11:30
PROVIDERS: PCP Family Medicine; Visit Provider Internal Medicine Rheumatology
DX: J84.9 Interstitial pulmonary disease, unspecified (principal); M05.79 Rheumatoid arthritis with rheumatoid factor of multiple sites without organ or systems involvement; Z79.899 Other long term (current) drug therapy
CPT/HCPCS: 36415; 80076; 82565; 85025; 86140

== ENCOUNTER 2022-01-06 12:24 | Outpatient (RCR) | payer SELFPAY | END 2022-02-04 23:59 | disposition home or self-care (01) | LOC: CR 12:24 | PROVIDERS: Family Provider Family Medicine; PCP Family Medicine; Referring Provider Internal Medicine Cardiovascular Disease; Visit Provider Internal Medicine Cardiovascular Disease | DX: Z95.2 Presence of prosthetic heart valve (principal) ==

== ENCOUNTER → 2022-01-26 13:24 | Outpatient (BNVA) | payer MEDICARE, OTHER, SELFPAY | PROVIDERS: Family Provider Family Medicine; PCP Family Medicine; Visit Provider Internal Medicine Rheumatology | DX: M05.79 Rheumatoid arthritis with rheumatoid factor of multiple sites without organ or systems involvement (principal); J84.9 Interstitial pulmonary disease, unspecified; Z79.899 Other long term (current) drug therapy; Z71.89 Other specified counseling; I50.9 Heart failure, unspecified | CPT/HCPCS: 99214 ==

== ENCOUNTER 2022-02-06 14:13 | Outpatient (RCR) | payer SELFPAY | END 2022-03-07 23:59 | disposition home or self-care (01) | LOC: CR 14:13 | PROVIDERS: Family Provider Family Medicine; PCP Family Medicine; Referring Provider Internal Medicine Cardiovascular Disease; Visit Provider Internal Medicine Cardiovascular Disease | DX: Z95.2 Presence of prosthetic heart valve (principal) ==

== ENCOUNTER → 2022-02-10 10:09 | Outpatient (BNVA) | payer MEDICARE, OTHER, SELFPAY | PROVIDERS: Family Provider Family Medicine; PCP Family Medicine; Visit Provider Internal Medicine Pulmonary Disease | DX: J98.4 Other disorders of lung (principal); M05.79 Rheumatoid arthritis with rheumatoid factor of multiple sites without organ or systems involvement; Z79.52 Long term (current) use of systemic steroids; I35.0 Nonrheumatic aortic (valve) stenosis; I27.20 Pulmonary hypertension, unspecified; R91.1 Solitary pulmonary nodule; J84.9 Interstitial pulmonary disease, unspecified; J43.8 Other emphysema; I50.9 Heart failure, unspecified; Z87.891 Personal history of nicotine dependence; Z99.81 Dependence on supplemental oxygen | CPT/HCPCS: 99214 ==

== ENCOUNTER → 2022-02-14 16:56 | Outpatient (BNVA) | payer MEDICARE, OTHER, SELFPAY | PROVIDERS: Family Provider Family Medicine; PCP Family Medicine; Visit Provider Family Medicine | DX: I48.21 Permanent atrial fibrillation (principal) | CPT/HCPCS: 85610 ==

== ENCOUNTER 2022-03-11 13:54 | Outpatient (RCR) | payer SELFPAY | END 2022-04-06 23:59 | disposition home or self-care (01) | LOC: CR 13:54 | PROVIDERS: Family Provider Family Medicine; PCP Family Medicine; Referring Provider Internal Medicine Cardiovascular Disease; Visit Provider Internal Medicine Cardiovascular Disease | DX: Z95.2 Presence of prosthetic heart valve (principal) ==

== ENCOUNTER → 2022-03-23 09:56 | Outpatient (BNVA) | payer MEDICARE, OTHER, SELFPAY | PROVIDERS: Family Provider Family Medicine; PCP Family Medicine; Visit Provider Nurse Practitioner Family | DX: I48.21 Permanent atrial fibrillation (principal); Z95.2 Presence of prosthetic heart valve; Z79.01 Long term (current) use of anticoagulants; I10 Essential (primary) hypertension | CPT/HCPCS: 85610; 99214 ==

== ENCOUNTER 2022-04-07 13:38 | Outpatient (RCR) | payer SELFPAY | END 2022-05-07 23:59 | disposition home or self-care (01) | LOC: CR 13:38 | PROVIDERS: Family Provider Family Medicine; PCP Family Medicine; Referring Provider Internal Medicine Cardiovascular Disease; Visit Provider Internal Medicine Cardiovascular Disease | DX: Z95.2 Presence of prosthetic heart valve (principal) ==

== ENCOUNTER 2022-04-12 08:29 | Observation (INO) | payer MEDICARE, OTHER, SELFPAY ==
[2022-04-11 14:42] VITALS: BMI 23.6
[2022-04-12] VITALS (24 sets, daily range): BP systolic 90–197; BP diastolic 38–83; PULSE 70–117; RESP 13–20; TEMP 36.2–36.8; O2SAT 87–100; BMI 23.2
--- NOTE | 2022-04-12 06:26 | PC.NURSE ---
PT'S O2 SATS WERE 87%ON ROOM AIR. PT WEARS O2 AT HOME WHEN NEEDED. NC ON PT AND O2 AT 2L.
[2022-04-12] MEDS: sodium chloride 0.9% 1,000 ML 30 ML IV (06:44)
--- NOTE | 2022-04-12 06:46 | W.PM.OPSUD ---
Surgery/Procedure H&P Update DATE OF PROCEDURE: April 12, 2022 DATE H&P PERFORMED: 03/14/22 PRIMARY INDICATION FOR PROCEDURE: Right submandibular pain PLANNED PROCEDURE: Operation Date: 04/12/22 07:00 Proposed Procedures p Excision of Right Submandibular Gland Excision [id number],K11.23,R22.1(Right) - Matty Krause MD
[2022-04-12] MEDS: clindamycin 600 MG/50 ML PREMIX 100 MG IV ×3 (07:00→20:22)
--- NOTE | 2022-04-12 08:03 | ANES.PREANE2 ---
Pre-Anesthetic Assessment Height/Weight: Height 1.5 m Weight 53.07 kg Temp Pulse Resp BP Pulse Ox O2 Del Method 97.6 F 78 16 129/61 87 L 04/12/22 06:22 04/12/22 06:22 04/12/22 06:22 04/12/22 06:22 04/12/22 06:22 04/12/22 06:22 Operation Date: 04/12/22 07:00 Proposed Procedures p Excision of Right Submandibular Gland Excision [id number],K11.23,R22.1(Right) - Matty Krause MD Familial anesthetic complications: none Was Beta Lorri taken within 24 hours: N/A Was Clonidine taken within 24 hours: N/A Last intake: Intake Last Liquid Date 04/11/22 Last Liquid Time 21:00 Last Solid Date 04/11/22 Last Solid Time 15:30 Social No alcohol and No tobacco (h/o smoking) Exam alert, oriented x 3 and regular rate & rhythm Airway Submandibular: within normal limits Cervical ROM: within normal limits Mallampati: Class II Dentition: false Pulmonary Chronic Obstructive Pulmonary Disease CV/HEM Atrial Fibrillation, Anemia, Congestive Heart Failure, Hypertension (PHTN) and Murmur (TAVR) CONCLUSIONS ?LV systolic function is normal with EF of 60-65% ?Severely dilated Left atrium ?Severe mitral annular calcification. Moderate mitral ?regurgitation ?Bioprosthetic aortic valve.? DVI is 0.37 and is normal. No ?significant stenosis or regurgitation ?Mild tricuspid regurgitation ?Mild pulmonic regurgitation ?Compared to prior echocardiogram from 01/06/2021, patient has ?bioprosthetic aortic valve. ?Gurvinder Russell MD ?(Electronically Signed) ?Final Date:? ? ? 21 August 2021 Metabolic Thyroid Disease Chronic [place] [facility] [place] Rheumatoid Arthritis Anesthetic Plan ASA status: 3 Anesthesia: General Medications/Allergies Home Medications Medication Instructions Recorded Confirmed Last Taken Type cholecalciferol (vitamin D3) 1,250 50,000 unit PO .MONTHLY 05/30/19 04/11/22 04/08/22 History mcg (50,000 unit) capsule ferrous sulfate 325 mg (65 mg 325 mg PO QDAY 05/30/19 04/11/22 04/11/22 History iron) tablet (Feosol) levothyroxine 25 mcg capsule 25 mcg PO QDAY 05/30/19 04/11/22 04/11/22 History warfarin 2 mg tablet 2 mg PO DAILY 02/20/20 04/12/22 04/06/22 History cetirizine 10 mg chewable tablet 10 mg PO DAILY 10/21/20 04/11/22 04/11/22 History ([facility]) furosemide 40 mg tablet 60 mg PO DIRECTED #135 tabs 03/29/21 04/11/22 04/11/22 Rx potassium chloride 20 mEq See Rx Instructions .Route 04/28/21 04/11/22 04/11/22 Rx tablet,extended release(part/cryst) .COMPLEX #180 tabs aspirin 81 mg tablet,delayed 81 mg PO DAILY 09/13/21 04/12/22 04/09/22 History release (Adult Aspirin Regimen) zinc 50 mg tablet 50 mg PO DAILY 11/22/21 04/11/22 04/11/22 History fluticasone fur. 100 mcg-umeclid 1 inh inhalation DAILY #60 ea 01/11/22 04/11/22 04/11/22 Rx 62.5 mcg-vilant 25 mcg inhalat.powder (Trelegy Ellipta) diclofenac sodium 1 % topical gel 2 g topical QID #100 grams 01/26/22 04/11/22 04/11/22 Rx mycophenolate mofetil 500 mg 500 mg PO BID #60 tabs 01/26/22 04/11/22 04/11/22 Rx tablet (CellCept) prednisone 10 mg tablet See Rx Instructions PO .COMPLEX 01/26/22 04/11/22 Unknown Rx PRN joint pain #30 tabs upadacitinib 15 mg tablet,extended 15 mg PO DAILY #30 tabs 01/26/22 04/11/22 04/11/22 Rx release 24 hr (Rinvoq) albuterol sulfate 90 mcg/actuation 1 inh inhalation QID PRN shortness 02/10/22 04/12/22 1 Day Ago Rx aerosol inhaler (Ventolin HFA) of breath or wheezing #8.5 grams ~04/11/22 alprazolam 0.5 mg tablet 0.5 mg PO BID PRN anxiety #60 tabs 02/16/22 04/11/22 04/11/22 Rx warfarin 2.5 mg tablet 2.5 mg PO DAILY #30 tabs 02/16/22 04/12/22 04/06/22 Rx enoxaparin 40 mg/0.4 mL 40 mg (0.4 mL) SUBCUT Q24H #4 mL 03/02/22 04/11/22 04/11/22 Rx subcutaneous syringe (Lovenox) tramadol 50 mg tablet 50 mg PO Q6H PRN Pain #90 tabs 04/05/22 04/12/22 1 Day Ago Rx ~04/11/22 ciprofloxacin HCl 500 mg tablet 500 mg PO BID #14 tabs 04/07/22 04/11/22 04/11/22 Rx Allergies Allergy/AdvReac Type Severity Reaction Status Date / Time penicillin G Allergy Severe anaphylacti Verified 04/12/22 06:06 c Penicillins Allergy Unknown Verified 04/12/22 06:06 hydroxychloroquine AdvReac Intermediate rash Verified 04/12/22 06:06 [From Plaquenil] tocilizumab [From Actemra] AdvReac Mild made her Verified 04/12/22 06:06 sick adhesive AdvReac blister Verified 04/12/22 06:06 tofacitinib [From Xeljanz] AdvReac Recurrent Verified 04/12/22 06:06 Infections Current Medications Generic Name Dose Route Start Last Admin Trade Name Freq PRN Reason Stop Dose Admin Sodium Chloride 1,000 mls @ 30 mls/hr 04/12/22 06:00 04/12/22 06:44 Sodium Chloride 0.9% IV 04/13/22 05:59 30 mls/hr .Q24H GERALD Administration PFSH Anesthesia Medical History Aortic stenosis Atrial fibrillation Cataract fragments in both eyes following surgery Chronic diastolic CHF (congestive heart failure) COVID-19 vaccine administered High risk medication use High risk medication use ILD (interstitial lung disease) Immunization counseling Mitral valve regurgitation Nonrheumatic aortic (valve) stenosis Pulmonary arterial hypertension Rheumatoid arthritis 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 Urinary tract infection Surgical History History of hysterectomy with bilateral oophorectomy History of throat surgery S/P hernia repair Family History Father CAD (coronary artery disease) Stroke Family/Other CAD (coronary artery disease) Daughter Lung disease Systemic lupus erythematosus (SLE) in adult Other Rheumatoid arthritis Denies family history of Diabetes Clotting disorder Dementia Chronic kidney disease (CKD) Suicide Anesthesia complication Bleeding disorder Cancer Hypertension Social History Smoking and tobacco status: never smoked Quit status (tobacco): has quit using tobacco Year quit tobacco: 1977 [id number] Second hand smoke exposure: No Smoking risk assessment/counseling performed?: No Alcohol intake: never Caregiver/support person: Yes Lives independently: No Household members: children Housing: House Marital status: Current occupational status: retired History of recent travel: No Current gender identity: Female Data Anesthesia Cardiac Studies: Echocardiogram 08/18/21 Echocardiogram Ultrasound 04/16/20 Stress Echocardiogram 03/03/21
[2022-04-12] MEDS: clindamycin 600 MG/50 ML PREMIX 100 MG XX (08:13)
[2022-04-12] MEDS: neomycin-poly-bacitracin oint 28 gm 1 APPLIC TOPICAL (08:27)
--- NOTE | 2022-04-12 08:44 | PM.OP ---
Operative Report Date of procedure: April 12, 2022 Pre-op diagnosis: Recurrent Right submandibular gland sialadenitis/pain Post-op diagnosis: same Post-op findings: Hard right submandibular gland O/W Normal right submandibular triangle Procedure done: Excisional bx of right submandibular gland Implants: None Specimens removed/disposition: Right submandibular gland Pathology: Right submandibular gland Surgeon: Matty Krause Nurse Clinician: Nel Horan Anesthesia: General Estimated blood loss (mL): 20 IV fluids (mL): 800 Urine output (mL): 50 Complications: None Findings: Hard right submandibular gland O/W Normal right submandibular triangle Condition: stable Disposition: PACU Brief History: 86 yo wf with a h/o recurrent right submandibular pain who desires surgical therapy. Procedure: The patient was identified in the preoperative holding area and was taken to the operating where she was placed on the operating table in the supine position. Anesthesia was obtained with general endotracheal anesthesia and the table was turned 180 degrees. An incision was marked out 2 fingerbreadths below the right mandible which was then injected with local anesthesia. The patient was then prepped and draped in the usual sterile fashion. The incision was then made with 15 blade and carried down through the subcutaneous tissues with electrocautery until the subplatysmal plane was reached. A subplatysmal dissection was performed superiorly until the inferior pole of the right submandibular gland was identified. The right submandibular gland was then dissected free from the surrounding tissues after skeletonizing the digastric muscle with a Chew dissector. The marginal mandibular nerve was rotated out of the way superiorly and the submandibular gland was excised sequentially using blunt dissection and bipolar cautery. Hemostasis was achieved with bipolar cautery. Once hemostasis had been achieved, Shon was placed in the wound, a drain was placed in the wound and the wound was closed with interrupted 4-0 and 5-0 Monocryl sutures. The skin was then closed with Dermabond and Steri-Strips. At this point the procedure was terminated and control of the patient was returned to anesthesia where she underwent an uneventful reversal of anesthesia and extubation and was taken to the recovery room in stable condition. There were no operative or anesthetic complications
[2022-04-12] MEDS: ipratropium-albuterol 3 mL Neb (09:12)
[2022-04-12] MEDS: meperidine 50 mg/mL INJ 12.5 MG IVP (09:25)
--- NOTE | 2022-04-12 10:19 | SUR.PHASEI ---
1015 Pt transfered to second floor room 277 bed 1. Daughter at bedside. Pt awake alert, and oriented. Warm blankets given to pt. VSS. Afebrile. Nurse Lisbeth at bedside. Pt transfered self to bed.
[2022-04-12] MEDS: ipratropium-albuterol 3 mL Neb INHALATION ×2 (11:54→16:07)
[2022-04-12] MEDS: lactated ringers 1,000 ML 100 ML IV ×2 (13:16→20:22)
[2022-04-12] MEDS: famotidine 20 mg/2 mL INJ IVP ×2 (13:18→23:54)
[2022-04-12] MEDS: docusate sodium 100 mg Capsule PO (13:18)
[2022-04-12] MEDS: ferrous sulfate EC 325 mg Tablet PO (13:19)
[2022-04-12] MEDS: levothyroxine 25 mcg Tablet PO (13:19)
[2022-04-12] MEDS: aspirin 81 mg EC Tablet PO (13:26)
--- NOTE | 2022-04-12 16:34 | ANE.PACU2 ---
Inpatient post-anesthesia follow up: Airway intact: Yes Vital signs: Temperature 98.3 F Pulse Rate 75 Respiratory Rate 18 Blood Pressure 101/65 Pulse Oximetry 99 Oxygen Delivery Me thod Nasal Cannula Oxygen Flow Rate 2 Fraction of Inspir ed Oxygen Hydration adequate: Yes Nausea and vomiting: No Pain level: 2 Mental status: Baseline
--- NOTE | 2022-04-12 17:48 | P.PN_ITS ---
Subjective Subjective: 86 yo wf who is night of surgery s/p excisional bx of her righ submandibular gland. The patient reports that she is doing well and has no c/o. She is eating well and has minimal pain. Medications: Reviewed: Yes Vitals/I&O/Wt Last Vital Signs Temp 98.3 F 04/12/22 16:00 Pulse 82 04/12/22 17:15 Resp 18 04/12/22 16:07 BP 101/65 04/12/22 16:00 Pulse Ox 99 04/12/22 16:07 O2 Del Method 04/12/22 16:07 O2 Flow Rate 2 04/12/22 16:07 04/12/22 04/12/22 04/12/22 06:59 14:59 22:59 Intake Total 1270 / 1270 Output Total 70 / 70 Balance 1200 / 1200 Weight last 48 hrs Weight 53.07 kg Weight 53.07 kg Physical Exam Const: COMMON NORMALS: no acute distress, patient oriented x3, healthy appearing and alert HENMT: COMMON NORMALS: normocephalic, atraumatic and external ears normal HEAD & SCALP: normocephalic and atraumatic EXTERNAL EAR: Yes external ears normal Eye: COMMON NORMALS: Equal, round and reactive pupils present and no scleral icterus PUPIL: Yes Equal, round and reactive pupils present Neck/C-Spine: COMMON NORMALS: no lymphadenopathy and supple GENERAL: Yes other (The right neck incision is intact without erythema or swelling.) Resp: COMMON NORMALS: No retractions, No use of accessory muscles and clear to auscultation bilaterally AUSCULTATION: clear to auscultation bilaterally Cardio: COMMON NORMALS: regular rate, regular rhythm and No murmurs present (Cardio) RATE: regular rate RHYTHM: regular rhythm GI: COMMON NORMALS: Normal to inspection, nondistended, normoactive bowel sounds present Extremity: COMMON NORMALS: normal to inspection Neuro: COMMON NORMALS: patient oriented x3 SENSORIUM/ORIENTATION: Yes alert Urinary Catheter Management: Johnston Latex: Cath Placed During This Visit: yes, but has since been removed by the nurse Urinary Catheter Date of Insertion: 04/12/22 Urinary Catheter Time of Insertion: 07:40 Date Urinary Catheter Removed: 04/12/22 Time Urinary Catheter Discontinued: 08:30 A&P Assessment and plan (1) Submandibular gland inflammation: Impression: Chronic right submandibular pain/sialadenitis doing well s/p excision of right submandibular gland Plan: - Closed suction drain in place - Pain control - Regular diet - Anticipate d/c in the morning - Restart Coumadin and continue SQ Lovenox Attestations Medical Necessity Statement*: The patient requires overnight observation of her airway/wound Coding Level of Care Code Acute Patient Access Coordinator for Gina Cantu Diagnoses Submandibular gland inflammation K11.20
[2022-04-12] MEDS: potassium chloride ER 20 mEq Tablet PO (18:14)
--- NOTE | 2022-04-12 19:35 | PC.NURSE ---
1110 Patient recieved from Pacu patient accompained per family awake and alert and cooperative.
[2022-04-12] MEDS: ALPRAZolam 0.5 mg Tablet PO (20:25)
[2022-04-12] MEDS: HYDROcodone-acetaminophen 5-325 mg Tablet 1 TAB PO (20:25)
[2022-04-12] MEDS: TRAMadol 50 mg Tablet PO (23:54)
--- NOTE | 2022-04-13 04:46 | PM.PN ---
Subjective Subjective: 86 yo wf who is POD #1 s/p excisional bx of right submandibular gland who reports doing well. The patient reports minimal pain and is eating well. There are no other c/o. Medications: Reviewed: Yes Vitals/I&O/Wt Last Vital Signs Temp 98.0 F 04/12/22 23:26 Pulse 74 04/12/22 23:26 Resp 14 04/12/22 23:26 BP 106/65 04/12/22 23:26 Pulse Ox 94 04/12/22 23:26 O2 Del Method 04/12/22 23:26 O2 Flow Rate 2 04/12/22 21:41 04/12/22 04/12/22 04/13/22 14:59 22:59 06:59 Intake Total 1270 / 1270 760 / 2030 Output Total 70 / 70 Balance 1200 / 1200 740 / 1940 -1929 Weight last 48 hrs Weight 52.163 kg Weight 53.07 kg Weight 53.07 kg Physical Exam Const: COMMON NORMALS: no acute distress, patient oriented x3 and alert HENMT: COMMON NORMALS: normocephalic, atraumatic and Normal external nose present HEAD & SCALP: normocephalic and atraumatic FACE & SINUS: normal facial exam NOSE: Normal external nose present Eye: COMMON NORMALS: Equal, round and reactive pupils present, conjunctivae normal and no scleral icterus CONJUNCTIVA: Yes conjunctivae normal PUPIL: Yes Equal, round and reactive pupils present Neck/C-Spine: COMMON NORMALS: no lymphadenopathy GENERAL: Yes other (The right neck wound is clean, intact, and without swelling. ) Resp: COMMON NORMALS: normal respiratory effort, No retractions, No use of accessory muscles and clear to auscultation bilaterally AUSCULTATION: clear to auscultation bilaterally Cardio: COMMON NORMALS: regular rate, regular rhythm and No murmurs present (Cardio) RATE: regular rate RHYTHM: regular rhythm GI: COMMON NORMALS: Normal to inspection, nondistended, normoactive bowel sounds present Extremity: COMMON NORMALS: normal to inspection Neuro: COMMON NORMALS: patient oriented x3 and CN's II-XII intact bilaterally SENSORIUM/ORIENTATION: Yes alert Urinary Catheter Management: Johnston Latex: Cath Placed During This Visit: yes, but has since been removed by the nurse Urinary Catheter Date of Insertion: 04/12/22 Urinary Catheter Time of Insertion: 07:40 Date Urinary Catheter Removed: 04/12/22 Time Urinary Catheter Discontinued: 08:30 A&P Assessment and plan (1) Submandibular gland inflammation: Impression: Doing well s/p excisional biopsy of right submandibular gland Plan: - D/C to home - Continue closed suction drain - Apply BRYAN to the right neck drain site - Regular diet - Resume Coumadin and Lovenox as per Dr. Ballard - F/U in Dr. Krause's office on 04/15/22 @ 13:00 hours - Notify Dr. Krause for any problems - The patient has an existing prescription for Tramadol at home. She is to take this as needed for pain Attestations Medical Necessity Statement*: The patient was observed overnight for airway complications. Coding Level of Care Code Acute Specialty Development Consultant for Gina Cantu Diagnoses Submandibular gland inflammation K11.20
[2022-04-13 04:52] VITALS: BP 99/63; PULSE 72; RESP 20; TEMP 36.4; O2SAT 93
[2022-04-13 04:54] VITALS: PULSE 72
[2022-04-13 07:51] VITALS: BP 101/54; PULSE 75; RESP 22; TEMP 36.8; O2SAT 94
--- NOTE | 2022-04-13 08:36 | PC.NURSE ---
PT LEFT VIA WHEELCHAIR WITH DAUGHTER
== END 2022-04-13 08:37 | disposition home or self-care (01) ==
LOC: MEDSURG 08:29
PROVIDERS: Admitting Provider Specialist; PCP Family Medicine; Visit Provider Specialist
PROC: (CPT 42440; principal; 2022-04-12 07:00)
DX: K11.23 Chronic sialoadenitis (principal); R22.1 Localized swelling, mass and lump, neck; J44.9 Chronic obstructive pulmonary disease, unspecified; I48.91 Unspecified atrial fibrillation; I11.0 Hypertensive heart disease with heart failure; I50.9 Heart failure, unspecified; Z79.899 Other long term (current) drug therapy
CPT/HCPCS: 42440; 12345; 51702; 88307; 94640; G0378; J0330; J1100; J2175; J2405; J2704; J3010; J3490; J3535; J7030; J7120; J7517

== ENCOUNTER → 2022-04-19 13:09 | Outpatient (BNVA) | payer MEDICARE, OTHER, SELFPAY | PROVIDERS: PCP Family Medicine; Visit Provider Internal Medicine Rheumatology | DX: M05.79 Rheumatoid arthritis with rheumatoid factor of multiple sites without organ or systems involvement (principal); Z79.899 Other long term (current) drug therapy; J84.9 Interstitial pulmonary disease, unspecified; Z71.89 Other specified counseling | CPT/HCPCS: 36415; 80076; 82565; 85025; 86140; 99214 ==

== ENCOUNTER 2022-05-11 13:54 | Outpatient (RCR) | payer SELFPAY | END 2022-06-02 23:59 | disposition home or self-care (01) | LOC: CR 13:54 | PROVIDERS: Family Provider Family Medicine; PCP Family Medicine; Referring Provider Internal Medicine Cardiovascular Disease; Visit Provider Internal Medicine Cardiovascular Disease | DX: Z95.2 Presence of prosthetic heart valve (principal) ==

== ENCOUNTER 2022-05-30 13:44 | Emergency (ER) | payer MEDICARE, OTHER, SELFPAY ==
[2022-05-30 13:55] VITALS: BP 125/74; PULSE 76; RESP 20; TEMP 36.3; O2SAT 96
--- NOTE | 2022-05-30 14:08 | XR_ITS ---
WS: [id number] Exam: XR chest 1V portable [id number] Date/Time of Exam: 05/30/2022 2:17 PM Reason For Exam: sob Comparison 08/03/2020. The lungs are fully expanded. Extensive chronic interstitial changes throughout both lungs. Cardiac e nlargement unchanged. Signs of cardiac valve replacement probably the mitral valve. The mediastinum i s normal in contour. Partially visualized length of wire superimposes the neck. Significance is undet ermined. Intact bony structures. XR/XR chest 1V portable [id number] IMPRESSION: 1. Extensive chronic interstitial changes of both lungs. No acute process is mcclure spected. 2. Cardiac enlargement unchanged. Cardiac valve replacement.
--- NOTE | 2022-05-30 14:08 | ECG_ITS ---
[facility] Test Date: 2022-05-30 Pat Name: Geneva Clark Department: Room: Gender: Female Aquarist: : 1935 Requested By: Clary Miguel Order Number: [id number] Annette MD: Gurvinder Russell M.D. Measurements Intervals [place] Rate: 93 P: 0 [place]: 0 QRS: -43 QRSD: 130 T: 105 QT: 359 QTc: 447 Interpretive Statements ATRIAL FIBRILLATION LEFT AXIS DEVIATION [QRS AXIS < -30] ANTEROSEPTAL MYOCARDIAL INFARCTION , OF INDETERMINATE AGE [40+ ms Q WAVE IN V1-V4] MODERATE T-WAVE ABNORMALITY, CONSIDER LATERAL ISCHEMIA [-0.1+ mV T-WAVE IN I/aVL/V5/V6] Compared to ECG 01/24/2020 04:05:02 Left-axis deviation now present T-wave abnormality now present Possible ischemia now present Myocardial infarct finding still present Electronically Signed On 05-31-2022 7:40:51 LADIES LOCKER ROOM ATTENDANT by Gurvinder Russell M.D. [email or web address]
[2022-05-30 15:27] LABS: Basophils % 0.4 %; Eosinophils # 0.1 10^3/uL (0.0-0.8); Eosinophils % 0.4 %; Hematocrit 33.2 % (37.0-47.0); Hemoglobin 9.9 g/dL (11.5-15.3); Lymphocytes # 0.8 10^3/uL (0.8-4.8); Lymphocytes % 6.8 %; Mean Corpuscular HGB Conc 29.8 g/dL (30.0-36.0); Mean Corpuscular Hemoglobin 29.3 pg (28.0-34.0); Mean Corpuscular Volume 98.2 fl (81-99); Monocytes # 0.9 10^3/uL (0.2-0.9); Monocytes % 7.8 %; Neutrophils # 9.46 10^3/uL (1.8-7.7); Neutrophils % 84.2 %; Nucleated Red Blood Cells % 0 %; Platelet Count 161 10^3/cmm (130-400); Red Blood Count 3.38 10^6/uL (4.1-5.3); Red Cell Distribution Width 16.1 % (12.1-15.1); White Blood Count 11.3 10^3/uL (4.0-10.0)
[2022-05-30 15:51] VITALS: PULSE 97; O2SAT 95
[2022-05-30 15:55] LABS: Troponin(5th) Baseline 42 ng/L (0-10)
[2022-05-30 16:02] LABS: Alanine Aminotransferase 24 U/L (0-33); Albumin Level 3.6 g/dL (3.5-5.2); Alkaline Phosphatase 112 U/L (35-105); Anion Gap 12.4 (5-19); Aspartate Amino Transferase 58 U/L (0-32); Blood Urea Nitrogen 22 mg/dL (8-23); Calcium 8.4 mg/dL (8.5-10.5); Carbon Dioxide 30 mmol/L (22-29); Chloride 95 mmol/L (98-107); Glucose 125 mg/dL (65-115); NT Pro B Type Natriuretic Pept 8354 pg/mL (0-450); Osmolality Calculated 281 mOsm/kg (285-295); Potassium 4.4 mmol/L (3.5-5.1); Sodium 133 mmol/L (136-145); Total Bilirubin 1.2 mg/dL (0.15-1.2); Total Protein 7.6 g/dL (6.6-8.7)
--- NOTE | 2022-05-30 16:35 | W.ED.SOB ---
HPI - SOB/Dyspnea General: Chief Complaint: Shortness of Breath/Dyspnea Stated Complaint: SOB Time Seen by Provider: 05/30/22 16:19 Source: patient and family (Daughter) Mode of arrival: ambulatory History of Present Illness: HPI Narrative: This 86-year-old female with a history of COPD presents to the ER with shortness of breath that started last night. In addition, she has a cough that started about a week ago. Cough is nonproductive. There is no associated fever. Daughter, who brought in patient, also noted that she had the same cough about a week ago. Patient denies nausea or vomiting. She has a history of recent heart valve replacement less than a year ago. She uses 2 L of oxygen at home and did a breathing treatment prior to ER arrival.. Associated symptoms: Deny chest pain or lightheadedness Review of Systems Const: Denies: chills, body aches or change in appetite Eyes: Denies: change in vision or eye discharge ENMT: Denies: throat pain, dental pain or nasal discharge Card: Denies: chest pain or lightheadedness Resp: Reports: dyspnea, non-productive cough and wheezing : Denies: dysuria Musc: Denies: neck pain or back pain Neuro: Denies: headache(s) or weakness in extremities Psych: Denies: depression Robert/Lymph: Denies: easy bruising All/Imm: Denies: urticaria, tongue swelling or facial swelling PFSH ED PFSH: Medical History Aortic stenosis Atrial fibrillation Cataract fragments in both eyes following surgery Chronic diastolic CHF (congestive heart failure) COVID-19 vaccine administered High risk medication use High risk medication use ILD (interstitial lung disease) Immunization counseling Mitral valve regurgitation Nonrheumatic aortic (valve) stenosis Pulmonary arterial hypertension Rheumatoid arthritis 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 Urinary tract infection Surgical History History of hysterectomy with bilateral oophorectomy History of throat surgery S/P hernia repair Family History Father CAD (coronary artery disease) Stroke Family/Other CAD (coronary artery disease) Daughter Lung disease Systemic lupus erythematosus (SLE) in adult Other Rheumatoid arthritis Denies family history of Diabetes Clotting disorder Dementia Chronic kidney disease (CKD) Suicide Anesthesia complication Bleeding disorder Cancer Hypertension Social History Smoking and tobacco status: never smoked Quit status (tobacco): has quit using tobacco Year quit tobacco: 1977 [id number] Second hand smoke exposure: No Smoking risk assessment/counseling performed?: No Alcohol intake: never Caregiver/support person: Yes Lives independently: No Household members: children Housing: House Marital status: Current occupational status: retired History of recent travel: No Current gender identity: Female Physical Exam Const: COMMON NORMALS: patient oriented x3, no limitations and alert HENMT: COMMON NORMALS: normocephalic HEAD & SCALP: normocephalic Eye: COMMON NORMALS: EOMs intact bilaterally Neck/C-Spine: COMMON NORMALS: full ROM and supple Chest: COMMONS NORMALS: normal inspection of the chest Resp: COMMON NORMALS: normal respiratory effort, No retractions, No use of accessory muscles and clear to auscultation bilaterally EFFORT & INSPECTION: Yes respiratory distress, Yes pursed lip breathing, Yes labored and Yes prolonged expiratory phase AUSCULTATION: clear to auscultation bilaterally, rales bilateral, wheezes lower bilaterally and diminished lung sounds OTHER: Currently on 2 L via nasal cannula (baseline for patient) Cardio: COMMON NORMALS: regular rate, regular rhythm and No murmurs present (Cardio) RATE: regular rate RHYTHM: regular rhythm GI: COMMON NORMALS: Normal to inspection, nondistended, normoactive bowel sounds present and non-tender : COMMON NORMALS: Yes no CVA tenderness BLADDER/KIDNEY EXAM: Yes no CVA tenderness Back/Pelvis: COMMON NORMALS: no CVA tenderness and no thoracic nor lumbar tenderness Extremity: GENERAL: Yes normal exam except as noted Neuro: COMMON NORMALS: patient oriented x3 and no focal motor deficits SENSORIUM/ORIENTATION: Yes alert Psych: COMMON NORMALS: mental status grossly normal and cooperative Course Vital Signs: Vital signs: Vital Signs Temperature 97.3 F L 05/30/22 13:55 Pulse Rate 88 05/30/22 18:14 Respiratory Rate 16 05/30/22 18:14 Blood Pressure 153/79 05/30/22 18:03 Pulse Oximetry 100 05/30/22 18:14 Oxygen Delivery Me thod 05/30/22 18:14 Oxygen Flow Rate 2 05/30/22 18:14 MDM - SOB/Dyspnea Medical Decision Making Medical decision making: Patient presents to the ER with shortness of breath, wheezing and cough. She has a history of COPD. After receiving breathing treatments and steroids, she felt considerably better. She just wanted to be discharged home. She notes that she will follow-up with her spanish speaking babysitter. On her usual 2 L of oxygen, she has good saturation with no significant dyspnea at this time. Given that she is clinically stable and she really wants to go home, patient was discharged home and advised to return if her condition worsens. She verbalized understanding and agrees with the plan. Lab Data 05/30/22 15:05 05/30/22 15:05 Labs/Radiology: Radiology Impressions Chest X-Ray 05/30/22 14:08 IMPRESSION: 1. Extensive chronic interstitial changes of both lungs. No acute process is suspected. 2. Cardiac enlargement unchanged. Cardiac valve replacement. Laboratory Results WBC 11.3 10^3/uL (4.0-10.0) H 05/30/22 15:05 RBC 3.38 10^6/uL (4.1-5.3) L 05/30/22 15:05 Hgb 9.9 g/dL (11.5-15.3) L 05/30/22 15:05 Hct 33.2 % (37.0-47.0) L 05/30/22 15:05 MCV 98.2 fl (81-99) 05/30/22 15:05 MCH 29.3 pg (28.0-34.0) 05/30/22 15:05 MCHC 29.8 g/dL (30.0-36.0) L 05/30/22 15:05 RDW 16.1 % (12.1-15.1) H 05/30/22 15:05 Plt Count 161 10^3/cmm (130-400) 05/30/22 15:05 MPV 11.0 fL (7.4-10.4) H 05/30/22 15:05 Neut % (Auto) 84.2 % 05/30/22 15:05 Lymph % (Auto) 6.8 % 05/30/22 15:05 [place] % (Auto) 7.8 % 05/30/22 15:05 Eos % (Auto) 0.4 % 05/30/22 15:05 Baso % (Auto) 0.4 % 05/30/22 15:05 Neut # (Auto) 9.46 10^3/uL (1.8-7.7) H 05/30/22 15:05 Lymph # (Auto) 0.8 10^3/uL (0.8-4.8) 05/30/22 15:05 [place] # (Auto) 0.9 10^3/uL (0.2-0.9) 05/30/22 15:05 Eos # (Auto) 0.1 10^3/uL (0.0-0.8) 05/30/22 15:05 Baso # (Auto) 0.0 10^3/uL (0.0-0.1) 05/30/22 15:05 Nucleated RBC % (auto) 0 % 05/30/22 15:05 Nucleated RBCs # 0.0 /100WBC 05/30/22 15:05 PT 41.50 SECONDS (12.1-14.9) H 05/30/22 15:33 INR 4.30 (0.8-1.2) H 05/30/22 15:33 Sodium 133 mmol/L (136-145) L 05/30/22 15:05 Potassium 4.4 mmol/L (3.5-5.1) 05/30/22 15:05 Chloride 95 mmol/L (98-107) L 05/30/22 15:05 Carbon Dioxide 30 mmol/L (22-29) H 05/30/22 15:05 Anion Gap 12.4 (5-19) 05/30/22 15:05 BUN 22 mg/dL (8-23) 05/30/22 15:05 Creatinine 0.8 mg/dL (0.5-0.9) 05/30/22 15:05 GFR Calculation Not Reportable 05/30/22 15:05 Glucose 125 mg/dL (65-115) H 05/30/22 15:05 Calculated Osmolality 281 mOsm/kg (285-295) L 05/30/22 15:05 Calcium 8.4 mg/dL (8.5-10.5) L 05/30/22 15:05 Total Bilirubin 1.2 mg/dL (0.15-1.2) 05/30/22 15:05 AST 58 U/L (0-32) H 05/30/22 15:05 ALT 24 U/L (0-33) 05/30/22 15:05 Alkaline Phosphatase 112 U/L (35-105) H 05/30/22 15:05 Troponin T Baseline 42 ng/L (0-10) H 05/30/22 15:05 Troponin T 120 Minute 46.40 ng/L (0-10) H 05/30/22 17:18 Delta Troponin T 4.40 ABS# (0-10) 05/30/22 17:18 NT-Pro-B Natriuret Pep 8354 pg/mL (0-450) H 05/30/22 15:05 Total Protein 7.6 g/dL (6.6-8.7) 05/30/22 15:05 Albumin 3.6 g/dL (3.5-5.2) 05/30/22 15:05 Globulin 4.0 g/dL (1.3-4.6) 05/30/22 15:05 Influenza Type A Ag negative (Negative) 05/30/22 18:00 Influenza Type B Ag negative (Negative) 05/30/22 18:00 SARS-CoV-2 Ag (Rapid) Negative (Negative) 05/30/22 18:00 Discharge Plan Discharge Patient Disposition: Home Clinical Impression: COPD (chronic obstructive pulmonary disease) Condition: Stable Prescriptions: New prednisone 20 mg tablet 20 mg PO BID 5 Days Qty: 10 0RF No Action levothyroxine 25 mcg capsule 25 mcg PO QDAY cholecalciferol (vitamin D3) 50,000 unit capsule 50,000 unit PO .MONTHLY ferrous sulfate [Feosol] 325 mg (65 mg iron) tablet 325 mg PO QDAY warfarin 2 mg tablet 2 mg PO DAILY cetirizine [Children's Wal-Zyr] 10 mg tablet,chewable 10 mg PO DAILY aspirin [Adult Aspirin Regimen] 81 mg tablet,delayed release (DR/EC) 81 mg PO DAILY zinc 50 mg tablet 50 mg PO DAILY diclofenac sodium 1 % gel 2 g topical QID Qty: 100 2RF Rx Instructions: apply to affected area as needed prednisone 10 mg tablet See Rx Instructions PO .COMPLEX PRN (Reason: joint pain) Qty: 30 1RF Rx Instructions: take 2 tabs daily for 5-7 days prn joint pain joint pain flare PO PRN; mycophenolate mofetil [CellCept] 500 mg tablet 500 mg PO BID Qty: 60 3RF Hold Instructions: Doctor's Order Rinvoq 15 mg tablet extended release 24 hr 15 mg PO DAILY Qty: 30 3RF Hold Instructions: Doctor's Order enoxaparin [Lovenox] 40 mg/0.4 mL syringe 40 mg SUBCUT Q24H Qty: 4 1RF Rx Instructions: stop coumadin 5 days prior to procedure. Take Lovenox injections daily while off coumadin. Do not take the injection on the day of your procedure. resume injections and coumadin both on the day after the procedure. continue injections for 5 days. mupirocin 2 % ointment 1 applic topical BID Qty: 22 0RF albuterol sulfate [Ventolin HFA] 90 mcg/actuation HFA aerosol inhaler 1 inh inhalation QID PRN (Reason: shortness of breath or wheezing) Qty: 8.5 3RF potassium chloride 20 mEq tablet,ER particles/crystals See Rx Instructions .ROUTE .COMPLEX Qty: 180 3RF Dose Instruction: TAKE 1 TABLET BY MOUTH TWO TIMES A DAY Rx Instructions: TAKE 1 TABLET BY MOUTH TWO TIMES A DAY Trelegy Ellipta 100-62.5-25 mcg blister with device 1 inh inhalation DAILY Qty: 60 5RF warfarin 2.5 mg tablet 2.5 mg PO DAILY Qty: 30 11RF alprazolam 0.5 mg tablet 0.5 mg PO BID PRN (Reason: anxiety) Qty: 60 5RF tramadol 50 mg tablet 50 mg PO Q6H PRN (Reason: Pain) Qty: 90 5RF ciprofloxacin HCl 500 mg tablet 500 mg PO BID Qty: 14 0RF Rx Instructions: hold coumadin while on this furosemide 40 mg tablet 60 mg PO DIRECTED Qty: 135 3RF Rx Instructions: Take 1 tab (40mg) by mouth every morning and 1/2 tab (20mg) by mouth every day at 2pm Discharge Orders: Discharge ED (Routine); Ordered 05/30/22 Ordered By: Martine Russo Referrals: Chandrakant Ballard MD [Primary Care Provider] - Patient Instructions: Opioid Safety, Pain Management Coding Level of Care Code ED Family Consumer Science [employer] Teacher for Chg Fwd Exam Comprehensive
[2022-05-30 18:03] VITALS: BP 153/79; O2SAT 100
--- NOTE | 2022-05-30 18:04 | ECG_ITS ---
[facility] Test Date: 2022-05-30 Pat Name: Geneva Clark Department: Room: Gender: Female Medical Coding Manager: : 1935 Requested By: Clary Miguel Order Number: [id number] Annette MD: Gurvinder Russell M.D. Measurements Intervals [place] Rate: 81 P: 0 NM: 0 QRS: -34 QRSD: 130 T: 116 QT: 396 QTc: 460 Interpretive Statements ATRIAL FIBRILLATION LEFT AXIS DEVIATION [QRS AXIS < -30] ANTEROSEPTAL MYOCARDIAL INFARCTION , OF INDETERMINATE AGE [40+ ms Q WAVE IN V1-V4] MODERATE T-WAVE ABNORMALITY, CONSIDER LATERAL ISCHEMIA [-0.1+ mV T-WAVE IN I/aVL/V5/V6] Compared to ECG 05/30/2022 14:08:36 No significant changes Electronically Signed On 05-31-2022 7:48:42 HORSE TREKKING GUIDE by Gurvinder Russell M.D. [id number]
[2022-05-30] MEDS: ipratropium 0.5 mg/2.5 mL Neb INHALATION (18:13)
[2022-05-30] MEDS: albuterol 2.5 mg/3 mL Neb INHALATION (18:13)
[2022-05-30 18:14] VITALS: PULSE 88; RESP 16; O2SAT 100
[2022-05-30 18:42] LABS: Influenza A by IFA negative (Negative); Influenza B by IFA negative (Negative)
[2022-05-30 18:47] LABS: SARS Covid-2 Antigen Negative (Negative)
[2022-05-30 20:33] LABS: Add Urine Microscopic? YES; Bilirubin Urine Neg (Negative); Blood Urine 3+ (Negative); Glucose Urine UA Norm (Normal); Ketones Urine Negative (Negative); Leukocyte Esterase Urine 1+ (Negative); Nitrate Urine Negative (Negative); Protein Urine Trace (Negative); RBC Urine 0-4 /hpf (0-2); Squamous Epithelial Cell Urine 0-4 /hpf (0-5); Urine Appearance Clear (CLEAR); Urine Color Yellow (Yellow); Urobilinogen Urine Norm (Negative); pH Urine 5 (5-7)
[2022-05-30 20:34] LABS: Add Urine Culture? No; Amorphous Sediment Urine 1+ /hpf; Bacteria Urine TRACE /hpf
== END 2022-05-30 20:53 | disposition home or self-care (01) ==
PROVIDERS: Physician Assistant; Emergency Provider Family Medicine; PCP Family Medicine
DX: J44.9 Chronic obstructive pulmonary disease, unspecified (principal); Z79.01 Long term (current) use of anticoagulants; Z79.82 Long term (current) use of aspirin; Z20.822 Contact with and (suspected) exposure to COVID-19; Z87.891 Personal history of nicotine dependence; I11.0 Hypertensive heart disease with heart failure; I50.32 Chronic diastolic (congestive) heart failure
CPT/HCPCS: 36415; 71045; 80053; 81001; 83880; 84484; 85025; 85610; 87426; 87804; 93005; 94640; 96374; 99285; J2930; J7613; J7644